=== PATIENT | male | born 1965 ===

== ENCOUNTER 2021-09-21 09:32 | Emergency (ER) | payer BC, SELFPAY ==
--- NOTE | ~2021-09-21 | XR_ITS ---
EXAMINATION: XR CHEST CLINICAL INFORMATION: Covid infection. Cough and shortness of breath. COMPARISON: Previous chest CTA June 2018 chest x-ray July 2013 TECHNIQUE: 2 views of the chest were obtained. FINDINGS: The cardiac and mediastinal contours are normal. The lungs are clear. There is no pleural effusion or pneumothorax. There are mild degenerative changes of the spine. XR/XR chest 2V IMPRESSION: Unremarkable examination.
[2021-09-21 09:38] VITALS: BP 147/76; PULSE 70; RESP 20; TEMP 36.7; O2SAT 95; BMI 35.2
--- NOTE | 2021-09-21 10:33 | ED_ITS ---
HPI - SOB/Dyspnea General Chief Complaint: Dyspnea Stated Complaint: FEVER CONGESTION POS COVID Time Seen by Provider: 09/21/21 10:33 Source: patient Mode of arrival: ambulatory Limitations: no limitations History of Present Illness HPI Narrative: patient started feeling sick last Wednesday, 8 days ago. He tested positive 4 days ago. Patient is vaccinated, patient has sleep apnea and Asthma. MD elicited complaint: shortness of breath and cough Pertinent past history: asthma Onset (ago): week(s) Context: recent illness Severity: mild Exacerbating factors: coughing Known history of: asthma Associated symptoms: denies other symptoms Related Data Previous Rx's Medication Instructions Recorded albuterol sulfate 90 mcg/actuation 2 puff INHALATION Q4H PRN 90 Days 08/05/21 aerosol inhaler #25.5 g atorvastatin 10 mg tablet 10 mg PO DAILY 90 Days #90 tab 08/05/21 lisinopril 5 mg tablet 5 mg PO DAILY 90 Days #90 tab 08/05/21 montelukast 10 mg tablet 10 mg PO DAILY 90 Days #90 tab 08/05/21 rivaroxaban 20 mg tablet (Xarelto) 20 mg PO QPM 90 Days #90 tab 08/05/21 ipratropium 0.5 mg-albuterol 3 mg 3 ml INHALATION Q8H PRN #180 ml 09/21/21 (2.5 mg base)/3 mL nebulization soln Allergies Allergy/AdvReac Type Severity Reaction Status Date / Time LOBSTER Allergy Mild ITCHING Uncoded 08/05/21 07:08 Review of Systems Constitutional: Constitutional: Reports no additional constitutional complaints Eyes: Eyes: Reports no additional eye complaints ENT: Denies dizziness Cardiovascular: Cardiovascular: Reports no additional cardiovascular complaints Respiratory: Respiratory: Reports as per HPI Gastrointestinal: Gastrointestinal: Reports no additional gastrointestinal complaints Musculoskeletal: Musculoskeletal: Reports no additional musculoskeletal complaints Integumentary/Breasts: Skin/Breast: Denies rash Neurologic: Reports system reviewed and no additional complaints, except as documented, Denies dizziness and Denies Sensory deficit (Neuro) Psychiatric: Psychiatric: Denies anxiety PMFSH Past Medical History Medical History Sleep apnea Social History Social History Advance Directives: No Advance Directives Information Provided: Yes Physical Exam Vital Signs: Vital Signs: Last Vital Signs Temp 98.0 F 09/21/21 09:38 Pulse 90 09/21/21 11:31 Resp 20 09/21/21 09:38 BP 147/76 H 09/21/21 09:38 Pulse Ox 94 09/21/21 11:31 Body Mass Index 35.2 Const: General: healthy appearing Nutritional Appearance: average body habitus Orientation/consciousness: oriented to person and patient oriented x3 Limitations: no limitations HENMT: Head: Yes normal to inspection Ears: external ears normal General nose exam: Normal external nose present Mouth: Normal oral and palatal mucosa present and oropharynx normal Throat: Yes posterior oropharynx normal Eyes: General: appearance normal, both eyes and all related structures Neck: Other: supple Neck: Yes normal visual inspection Chest: Chest palpation & inspection: normal inspection of the chest Resp: Other: slight wheeze bilaterally Cardio: Jugular venous distension: no JVD Rate: regular rate Rhythm: regular rhythm Heart sounds: S1 normal heart sound present and S2 normal heart sound present GI: Inspection: Yes normal to inspection Palpation (GI): Soft to palpation, nontender and No hepatosplenomegaly present Auscultation: normal bowel sounds : General: Yes no CVA tenderness Back/Spine/Pelvis: Back: no CVA tenderness Skin: General skin exam: no rashes or lesions noted Neuro: General: oriented to person and patient oriented x3 Cranial nerves: Yes CN's II-XII intact bilaterally Motor exam (neuro): 5/5 motor strength present throughout Sensory Exam: No Sensory deficit (Neuro) Extrem: General: Yes normal to inspection Psych: Appearance: grossly normal Course Reevaluation(s) Reevaluation #1: Patient not hypoxic here, xray with no infiltrate will encourage patient to continue with albuterol as needed Time: 11:18 MDM - SOB/Dyspnea Imaging Data Chest x-ray: Radiologist's impression: FINDINGS: The cardiac and mediastinal contours are normal. The lungs are clear. There is no pleural effusion or pneumothorax. There are mild degenerative changes of the spine. XR/XR chest 2V IMPRESSION: Unremarkable examination. Discharge Plan Discharge Clinical Impression: COVID-19 Patient Disposition: Home, Self-Care Instructions: COVID-19 (Coronavirus Disease 2019) (ED) Prescriptions: New ipratropium-albuterol 0.5 mg-3 mg(2.5 mg base)/3 mL solution for nebulization 3 ml inhalation Q8H PRN (Reason: shortness of breath or wheezing) Qty: 180 RF: 0 No Action albuterol sulfate 90 mcg/actuation HFA aerosol inhaler 2 puff inhalation Q4H PRN (Reason: shortness of breath or wheezing) 90 Days Qty: 25.5 RF: 3 atorvastatin 10 mg tablet 10 mg PO DAILY 90 Days Qty: 90 RF: 3 lisinopril 5 mg tablet 5 mg PO DAILY 90 Days Qty: 90 RF: 3 montelukast 10 mg tablet 10 mg PO DAILY 90 Days Qty: 90 RF: 3 Xarelto 20 mg tablet 20 mg PO QPM 90 Days Qty: 90 RF: 3 Referrals: Tor Amaya, CERTIFIED SHORTHAND REPORTER-BC [Primary Care Provider] - 1 week Interventions: ED Discharge Assessment Last Done: 09/21/21 11:48 Discharge Date/Time: 09/21/21 11:48
[2021-09-21] MEDS: Albuterol Sulfate 90 MCG 8 GM INHALER 4 PUFF INHALE (11:04)
[2021-09-21 11:06] VITALS: PULSE 70; O2SAT 95
[2021-09-21 11:31] VITALS: PULSE 90; O2SAT 94
--- NOTE | 2021-09-21 11:46 | PC.NURSE ---
pt asking for refills of duoneb and prednisone. dr patel aware, dr speaking with patient. pt agreable with plan.
== END 2021-09-21 11:48 | disposition home or self-care (01) ==
PROVIDERS: Emergency Provider Emergency Medicine; PCP Nurse Practitioner Family
DX: U07.1 COVID-19 (principal); R06.02 Shortness of breath; J45.909 Unspecified asthma, uncomplicated; Z79.899 Other long term (current) drug therapy
CPT/HCPCS: 71046; 94640; 99283; 99284

== ENCOUNTER 2022-08-06 12:10 | Outpatient (REF) | payer BC, SELFPAY ==
--- NOTE | ~2022-08-06 | XR_ITS ---
EXAMINATION: X-RAY BILATERAL KNEES X-RAY RIGHT KNEE CLINICAL INFORMATION: Knee pain COMPARISON: X-ray 01/14/2017 TECHNIQUE: X-ray bilateral knees one view. Right knee 2 views. FINDINGS: Right knee: Mild medial compartment joint space narrowing. No evidence of acute fracture or dislocation. Small marginal patellar osteophytes. No significant effusion. Left knee: Mild medial compartment joint space narrowing. No acute findings seen. XR/XR knee RT 2V IMPRESSION: Right knee: Mild medial compartment arthritis. No acute findings. Left knee: Mild medial compartment arthritis.
--- NOTE | ~2022-08-06 | XR_ITS ---
EXAMINATION: X-RAY BILATERAL KNEES X-RAY RIGHT KNEE CLINICAL INFORMATION: Knee pain COMPARISON: X-ray 01/14/2017 TECHNIQUE: X-ray bilateral knees one view. Right knee 2 views. FINDINGS: Right knee: Mild medial compartment joint space narrowing. No evidence of acute fracture or dislocation. Small marginal patellar osteophytes. No significant effusion. Left knee: Mild medial compartment joint space narrowing. No acute findings seen. XR/XR knee standing BI IMPRESSION: Right knee: Mild medial compartment arthritis. No acute findings. Left knee: Mild medial compartment arthritis.
== END 2022-08-06 12:11 | disposition home or self-care (01) ==
LOC: HO.HOSX 12:10
PROVIDERS: Visit Provider Orthopaedic Surgery
DX: M23.91 Unspecified internal derangement of right knee (principal)
CPT/HCPCS: 73560; 73565

== ENCOUNTER 2022-08-28 15:10 | Outpatient (REF) | payer BC, SELFPAY ==
--- NOTE | ~2022-08-28 | MR_ITS ---
EXAMINATION: MR KNEE WITHOUT CONTRAST, RIGHT CLINICAL INFORMATION: Right knee pain COMPARISON: Radiographs 08/06/2022 TECHNIQUE: MRI of the knee without contrast was performed using routine sequences on a high-field scanner. FINDINGS: MENISCI: Medial Meniscus: There is an oblique undersurface tear of the posterior horn with a tiny peripheral parameniscal cyst. Lateral Meniscus: Intact LIGAMENTS: Cruciate: Intact Collateral: Intact EXTENSOR MECHANISM: Intact ARTICULAR CARTILAGE/BONE: Patellofemoral Compartment: Normal Medial Compartment: Minimal cartilage thinning with areas of signal heterogeneity along the weightbearing femoral condyle Lateral Compartment: Normal JOINT FLUID AND BURSAE: No joint effusion. Trace Trujillo's cyst. MR/MR knee RT wo con IMPRESSION: Oblique undersurface tear of the posterior horn of the medial meniscus with a tiny peripheral parameniscal cyst. Mild medial compartment osteoarthritis. Trace Trujillo's cyst.
== END 2022-08-28 15:11 | disposition home or self-care (01) ==
LOC: HO.MRI 15:10
PROVIDERS: PCP Nurse Practitioner Family; Visit Provider Orthopaedic Surgery
DX: M23.91 Unspecified internal derangement of right knee (principal)
CPT/HCPCS: 73721

== ENCOUNTER 2023-02-22 06:12 | Outpatient (REF) | payer BC, SELFPAY ==
[2023-02-22 11:15] LABS: MANUAL DIFF FLAG NO
[2023-02-22 11:51] LABS: Appearance Urine Turbid; Color Urine Yellow; Glucose Urine UA 250 mg/dL (Negative); Leukocyte Esterase Urine Negative (Negative); Nitrite Urine Negative (Negative); PH 5.5 (5.0-9.0); Specific Gravity - Urine 1.025 (1.005-1.025); Urine Blood Negative (Negative); Urine Ketones Negative (Negative); Urine Protein Negative (Neg-Trace)
[2023-02-22 12:01] LABS: Basophils Percent Auto 0.3 % (0-2); Eosinophils Absolute Auto 0.1 X10*3/uL (0.0-0.4); Hematocrit 46.5 % (42.0-52.0); Hemoglobin 15.8 g/dl (14.0-18.0); Imm Gran Abs Auto 0.02 X10*3/uL (0.00-0.03); Imm Gran Pct Auto 0.3 % (0.0-0.4); Lymphocytes Absolute Auto 2.8 X10*3/uL (1.2-4.9); Mean Corpuscular Hemoglobin 33.1 pg (27.0-33.0); Mean Corpuscular Volume 97.5 fL (80.0-98.0); Mean Platelet Volume 10.3 fL (9.4-12.4); Monocytes Absolute Auto 0.7 X10*3/uL (0.1-1.2); Monocytes Percent Auto 9.5 % (2-11); Neutrophils Absolute Auto 3.3 x10*3/uL (2.0-8.3); Neutrophils Percent Auto 47.9 % (45-73); Platelet Count 197 X10*3/uL (160-400); Red Blood Count 4.77 X10*6/uL (4.60-5.80); Red Cell Distribution Width 11.9 % (11.0-16.0); White Blood Count 6.9 X10*3/uL (4.8-10.8)
[2023-02-22 12:32] LABS: Alanine Aminotransferase 47 U/L (0-40); Albumin Level 4.2 g/dL (3.5-5.0); Alkaline Phosphatase 57 U/L (39-117); Anion Gap 13 (12-20); Aspartate Amino Transferase 32 U/L (5-37); Bilirubin Total 0.4 mg/dL (0.0-1.0); Blood Urea Nitrogen 15 mg/dL (9-16); Calcium 9.5 mg/dL (8.4-10.2); Carbon Dioxide 28 mmol/L (22-29); Chloride 102 mmol/L (96-108); Cholesterol 232 mg/dL; Estimated Glomerular Filt Rate 54; Glucose Fasting 246 mg/dL (60-99); HDL Cholesterol 41 mg/dL; LDL Cholesterol Calculated 148 mg/dl; Potassium 4.7 mmol/L (3.3-5.1); Sodium 138 mmol/L (135-145); TSH reflex Free T4 1.47 uIU/mL (0.32-4.0); Triglycerides 219 mg/dL
== END 2023-02-22 06:13 | disposition home or self-care (01) ==
LOC: HO.HMGCLDS 06:12
PROVIDERS: PCP Nurse Practitioner Family; Visit Provider Nurse Practitioner Family
DX: Z00.00 Encounter for general adult medical examination without abnormal findings (principal); Z12.5 Encounter for screening for malignant neoplasm of prostate; E11.9 Type 2 diabetes mellitus without complications
CPT/HCPCS: 36415; 80053; 80061; 81003; 84153; 84443; 85025

== ENCOUNTER 2023-08-16 07:41 | Outpatient (AMB) | payer BC, SELFPAY ==
--- NOTE | 2023-08-16 07:24 | A.OFFPC_ITS ---
Intake Visit Reasons: new DM Allergies LOBSTER Allergy (Mild, Uncoded 04/21/23 14:10) ITCHING Medication List - Last Reconciled 08/16/23 by SWATI Foster albuterol sulfate 90 mcg/actuation 2 puffs inhalation Q4H PRN 90 days atorvastatin 10 mg PO BEDTIME 90 days CPAP (CPAP Machine/Device) Settings to be gauged at 8 to 13 cmH2O Dexcom G6 [employer] Teacher (blood-glucose meter,continuous) tid testing NS Dexcom G6 Sensor (blood-glucose sensor) tid testing NS Dexcom G6 Transmitter (blood-glucose transmitter) tid testing NS flash glucose scanning reader (FreeStyle Ermelinda 2 [place]) To monitor blood glucose throughout the day flash glucose sensor (FreeStyle Ermelinda 2 Sensor kit) To monitor blood glucose throughout the day ipratropium-albuterol 0.5 mg-3 mg(2.5 mg base)/3 mL 3 mL inhalation Q8H PRN lisinopril 10 mg PO DAILY 90 days montelukast 10 mg PO DAILY 90 days OneTouch Ultra Test (blood sugar diagnostic) TID NS OneTouch Ultra2 Meter (blood-glucose meter) TID NS OneTouch UltraSoft Lancets (lancets) TID NS rivaroxaban (Xarelto) 20 mg PO QPM 90 days semaglutide 1 mg (0.75 mL) subcut QWEEK Tobacco use date assessed: 04/21/23 HPI new DM HPI Details Pt is a diabetic, on an GABRIEL and a statin. Last A1C was 7.2, due for repeat. Due for microalbumin, will order. Denies polyuria, polydipsia, and neuropathy. Pt denies any signs and symptoms of hypoglycemia and does know how to correct it. Pt reports that his blood sugar has been well-controlled. He has been working on his diet and losing weight. Eye exam is up to date. Pt c/o pain in his middle upper back (below shoulder blades). He denies any radicular symptoms. he reports having this back pain before, which has been becoming worse, describing muscle tightness. Will send tizanidine 4mg to try, order a XR, encouraged warm moist heat to region, and stretching. 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 Joshua Elaine, Devorah Sharp, Mendel Kumar and colleagues, with an educational lázaro from [employer]. Review of Systems Const Reports as per HPI Physical exam (Primary Care) Tobacco/Smoking Status: Tobacco use Status Tobacco use date assessed 04/21/23 04/21/23 14:13 Patient Tobacco Use Status Former Tobacco user 04/21/23 14:13 e-Cigarette/Vaping Use Never Used 04/21/23 14:13 Thrive Assessment: Date of Thrive Assessment Date Thrive assessed 02/17/23 04/21/23 14:13 Const General: cooperative Orientation/consciousness: patient oriented x3 Neuro General: patient oriented x3 Psych Appearance: grossly normal Mental Status: mental status grossly normal Speech and movement: Clear speech present Affect: normal affect Attitude: cooperative Thought process: Normal thought process present Thought content: Normal thought content present Insight: Good insight present (Psych) Judgement: Good judgement present (Psych) Telehealth Telehealth Location of provider rendering services: practice address Location of patient: address on file Patient Identification confirmed using: Name, : Yes Telehealth method: voice only Patient verbally consented to treatment: Yes Patient verbally consented to billing insurance company: Yes Patient informed of any privacy concerns related to visit: Yes Minutes spent on Phone/Video with Pt.: 10 Assessment and Plan Assessment & Plan (1) Thoracic back pain: Code(s): M54.6 - Pain in thoracic spine Plan: XR ordered, tizanidine sent, heat and stretching (2) Diabetes: Code(s): E11.9 - Type 2 diabetes mellitus without complications Plan: Labs ordered Plan The patient agreed to the use of a durable medical equipment technician for this encounter. Scribed fo shante Amaya, INTERVENTIONAL NURSE-BC by Delaney Rubio, durable medical equipment technician, on 08/16/2023 at 07:25 EST. Orders: Orders Complete Blood Count Auto Diff Today E11.9 - Type 2 diabetes mellitus without complications TSH reflex Free T4 Today E11.9 - Type 2 diabetes mellitus without complications Lipid Panel Today E11.9 - Type 2 diabetes mellitus without complications Microalbumin, Random (w Creat) Today E11.9 - Type 2 diabetes mellitus without complications XR thoracic spine 2V Today M54.6 - Pain in thoracic spine Comprehensive [place]. Panel Fast Today E11.9 - Type 2 diabetes mellitus without complications UA CC w/rflx Micro + Cult Today E11.9 - Type 2 diabetes mellitus without complications Hemoglobin A1c Today E11.9 - Type 2 diabetes mellitus without complications Medications: New tizanidine 4 mg PO BID 14 days PRN 28 tabs 0RF muscle spasticity Coding Level of Care Code Tele Est Pt Level 3 (93927) Diagnoses Thoracic back pain M54.6 Diabetes E11.9
== END 2023-08-16 08:32 | disposition home or self-care (01) ==
PROVIDERS: PCP Nurse Practitioner Family; Visit Provider Nurse Practitioner Family
DX: M54.6 Pain in thoracic spine (principal); E11.9 Type 2 diabetes mellitus without complications
CPT/HCPCS: 99441

== ENCOUNTER 2023-11-29 07:47 | Outpatient (REF) | payer BC, SELFPAY | END 2023-11-29 07:48 | disposition home or self-care (01) | LOC: HO.HMGCLDS 07:47 | PROVIDERS: PCP Nurse Practitioner Family; Visit Provider Nurse Practitioner Family | DX: E11.9 Type 2 diabetes mellitus without complications (principal) | CPT/HCPCS: 36415; 80053; 80061; 81003; 82043; 82570; 83036; 84443; 85025 ==

== ENCOUNTER 2023-11-30 09:42 | Outpatient (AMB) | payer BC, SELFPAY ==
--- NOTE | 2023-11-30 09:46 | MHC.PC.OV ---
Vital Signs 11/30/23 09:50 11/30/23 10:14 Height 6 ft Weight 240 lb BMI 32.5 BP 136/92 H 140/90 H Blood Pressure Location Rt brachial Rt brachial Position Sitting Sitting Pulse 74 Pulse Source Pulse Oximeter Pulse Oximetry (%) 98 Oxygen Delivery Method Room Air Intake Visit Reasons: 3 months follow up Intake Note: Patient here for diabetes f/u. Pt states sugars have been good. Allergies LOBSTER Allergy (Mild, Uncoded 11/30/23 09:51) ITCHING Tobacco use date assessed: 11/30/23 Dental Screening Dental Screen Date: 11/30/23 Did you have a dental visit in the last 12 months?: Yes Did you have a dental problem in the last 6 months where you did not have access to dental care?: No Was dental information given to patient?: Patient has dentist HPI 3 months follow up HPI Details Pt is a diabetic, on an GABRIEL and a statin. Last A1C was 5.9, microalbumin is up to date. Denies polyuria, polydipsia, and neuropathy. Pt denies any signs and symptoms of hypoglycemia and does know how to correct it. HTN: Blood pressure is managed with lisinopril 10mg. BP is elevated, will increase lisinopril to 20mg. 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 Denies chest pain, shortness of breath, headache, dizziness, and blurred vision. Will repeat CMP in 2 weeks. 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 1. Little interest or pleasure in doing things: not at all 2. Feeling down, depressed, or hopeless: several days 3. Trouble falling or staying asleep, or sleeping too much: several days 4. Feeling tired or having little energy: several days 5. Poor appetite or overeating: several days 6. Feeling bad about yourself - or that you are a failure or have let yourself or your family down: several days 7. Trouble concentrating on things, such as reading the newspaper or watching television: several days 8. Moving or speaking so slowly that other people could have noticed. Or the opposite - being so fidgety or restless that you have been moving around a lot more than usual: not at all 9. Thoughts that you would be better off or of hurting yourself in some way: not at all Total score: 6 Depression Screening Interpretation: Negative Depression Screening Done: Yes 27314 - PHQ-9 Billing: Yes Source: Developed by Drs. Joshua Elaine, Devorah Sharp, Mendel Kumar and colleagues, with an educational lázaro from [email or web address]. Thrive Questionnaire Date Thrive assessed: 11/30/23 I am a: Patient What is your living situation today?: I have a steady place to live Within the past 12 months, did the food you bought not last and you didn't have the money to get more?: Never true Within the past 12 months, did you worry whether your food would run out before you got money to buy more?: Never true Do you have trouble paying for medicines?: No Do you have trouble getting transportation to medical appointments?: No Do you have trouble paying your heating and electricity bill?: No Do you have trouble taking care of your child, family member or friend?: No Do you have trouble with day-to-day activities such as bathing, preparing meals, shopping, managing finances, etc.?: No Are you currently unemployed and looking for a job?: No Are you interested in more education?: No AUDIT C Alcohol Use Questionnaire (AUDIT-C) 1. How often do you have a drink containing alcohol?: 2-4 times a month 2. How many drinks containing alcohol do you have on a typical day when you are drinking?: 1 or 2 3. How often do you have six or more drinks on one occasion?: Never Total Score: 2 Score Reviewed/Action Taken: No KASIA-7 AMB Questionnaire KASIA-7 Date KASIA - 7 assessed: 02/17/23 Feeling nervous, anxious, or on edge: 1 = Several days Not being able to stop or control worryin = Several days Worrying too much about different things: 1 = Several days Trouble relaxin = Several days Being so restless that it is hard to sit still: 1 = Several days Becoming easily annoyed or irritable: 1 = Several days Feeling afraid as if something awful might happen: 1 = Several days Total KASIA-7 score (0-4 normal; 5-9 mild; 10-14 moderate; 15-21 severe): 7 Source: Developed by Drs. Joshua Elaine, Devorah Sharp, Mendel Kumar and colleagues, with an educational lázaro from [email or web address]. KASIA-7 Assessment Billing KASIA-7 Assessment Tool: KASIA-7 Assessment 41069 Review of Systems Const Reports as per HPI Physical exam (Primary Care) Vital Signs: Last Vital Signs Pulse 74 11/30/23 09:50 BP 140/90 H 11/30/23 10:14 Pulse Ox 98 11/30/23 09:50 Oxygen Delivery Method Room Air 11/30/23 09:50 BMI result Body Mass Index 32.5 Tobacco/Smoking Status: Tobacco use Status Tobacco use date assessed 11/30/23 11/30/23 09:55 Patient Tobacco Use Status Never used Tobacco 11/30/23 09:55 e-Cigarette/Vaping Use Never Used 11/30/23 09:47 PHQ-9: PHQ-9 Score PHQ-9: Total score 6 11/30/23 10:35 Depression Screening Interpretation: Negative Thrive Assessment: Date of Thrive Assessment Date Thrive assessed 11/30/23 11/30/23 10:35 Const General: cooperative Nutritional Appearance: obese Orientation/consciousness: patient oriented x3 Resp Effort & Inspection: normal respiratory effort Auscultation: clear to auscultation bilaterally Cardio Rate: regular rate Rhythm: regular rhythm Heart sounds: S1 normal heart sound present and S2 normal heart sound present Neuro General: patient oriented x3 Extrem Other: bilat feet: + sensation with use of monofilament, feet intact Right lower extremity: no edema Left lower extremity: no edema Psych Appearance: grossly normal Mental Status: mental status grossly normal Speech and movement: Normal speech and movement present Affect: normal affect Attitude: cooperative Thought process: Normal thought process present Thought content: Normal thought content present Insight: Good insight present (Psych) Judgement: Good judgement present (Psych) Assessment and Plan Assessment & Plan (1) Diabetes: Code(s): E11.9 - Type 2 diabetes mellitus without complications Plan: Labs ordered (2) Hypertension: Code(s): I10 - Essential (primary) hypertension Plan: Increasing lisinopril to 20mg Plan The patient agreed to the use of a medical care administrator for this encounter. Scribed for JUNI Perez-GREGOR by Delaney Rubio medical care administrator, on 11/30/2023 at 10:10 EST. Orders: Orders Complete Blood Count Auto Diff Today E11.9 - Type 2 diabetes mellitus without complications UA CC w/rflx Micro + Cult Today E11.9 - Type 2 diabetes mellitus without complications Comprehensive [place]. Panel Fast Today E11.9 - Type 2 diabetes mellitus without complications TSH reflex Free T4 Today E11.9 - Type 2 diabetes mellitus without complications Lipid Panel Today E11.9 - Type 2 diabetes mellitus without complications Comprehensive [place]. Panel Today I10 - Essential (primary) hypertension Medications: Changed From lisinopril 10 mg PO DAILY 90 days 90 tabs 1RF I10 - Essential (primary) hypertension To lisinopril 20 mg PO DAILY 90 tabs 1RF 90 days I10 - Essential (primary) hypertension Coding Level of Care Code Est Pt Level 3 (25287) Diagnoses Diabetes E11.9 Hypertension I10 Additional Codes KASIA-7 Assessment Billing - KASIA-7 Assessment Tool: KASIA-7 Assessment 10645 ([id number])
[2023-11-30 09:50] VITALS: BP 136/92; PULSE 74; O2SAT 98; BMI 32.5
[2023-11-30 10:14] VITALS: BP 140/90
== END 2023-11-30 11:22 | disposition home or self-care (01) ==
PROVIDERS: PCP Nurse Practitioner Family; Visit Provider Nurse Practitioner Family
DX: E11.9 Type 2 diabetes mellitus without complications (principal); I10 Essential (primary) hypertension
CPT/HCPCS: 99213

== ENCOUNTER 2024-08-21 12:57 | Outpatient (AMB) | payer BC, SELFPAY ==
--- NOTE | 2024-08-21 13:00 | A.OFFPC_ITS ---
Vital Signs 08/21/24 13:06 Height 6 ft Weight 238 lb 8 oz BMI 32.3 BP 138/90 H Blood Pressure Location Rt brachial Pulse 101 H Pulse Source Pulse Oximeter Pulse Oximetry (%) 97 Oxygen Delivery Method Room Air Intake Visit Reasons: PE Intake Note: Pt is here today for his annual physical Allergies LOBSTER Allergy (Mild, Uncoded 11/30/23 09:51) ITCHING Tobacco use date assessed: 08/21/24 Dental Screening Dental Screen Date: 08/21/24 Did you have a dental visit in the last 12 months?: Yes Did you have a dental problem in the last 6 months where you did not have access to dental care?: No Was dental information given to patient?: Patient has dentist HPI PE HPI Details Pt is here for a PE. Will order labs. Due for colon screen, will refer to GI. Due for PSA, will order. Denies dribbling with urination, weak stream, and frequent nocturia. Pt is a diabetic, on an GABRIEL and a statin. A1C in office today is 6.3. Microalbumin is up to date. Denies polyuria, polydipsia, and neuropathy. Pt denies any signs and symptoms of hypoglycemia and does know how to correct it. HTN: Pt's blood pressure is elevated today. Will increase lisinopril from 20mg to 40mg. Denies chest pain, shortness of breath, headache, dizziness, and blurred vision. I will sign off on paperwork stating that pt has sleep apnea and asthma for the DE. 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 1. Little interest or pleasure in doing things: not at all 2. Feeling down, depressed, or hopeless: several days 3. Trouble falling or staying asleep, or sleeping too much: several days 4. Feeling tired or having little energy: several days 5. Poor appetite or overeating: not at all 6. Feeling bad about yourself - or that you are a failure or have let yourself or your family down: several days 7. Trouble concentrating on things, such as reading the newspaper or watching television: not at all 8. Moving or speaking so slowly that other people could have noticed. Or the opposite - being so fidgety or restless that you have been moving around a lot more than usual: not at all 9. Thoughts that you would be better off or of hurting yourself in some way: not at all Total score: 4 Depression Screening Interpretation: Negative Depression Screening Done: Yes 13369 - PHQ-9 Billing: Yes Source: Developed by Drs. Joshua Elaine, Devorah Sharp, Mendel Kumar and colleagues, with an educational lázaro from [employer]. Thrive Questionnaire Date Thrive assessed: 08/21/24 I am a: Patient What is your living situation today?: I have a steady place to live Within the past 12 months, did the food you bought not last and you didn't have the money to get more?: Never true Within the past 12 months, did you worry whether your food would run out before you got money to buy more?: Never true Do you have trouble paying for medicines?: No Do you have trouble getting transportation to medical appointments?: No Do you have trouble paying your heating and electricity bill?: No Do you have trouble taking care of your child, family member or friend?: No Do you have trouble with day-to-day activities such as bathing, preparing meals, shopping, managing finances, etc.?: No Are you currently unemployed and looking for a job?: No Are you interested in more education?: No Please select the resources that you would like help with: None Currently or been in a relationship where the following occur: No concerns reported THRIVE Score: 0 AUDIT C Alcohol Use Questionnaire (AUDIT-C) 1. How often do you have a drink containing alcohol?: 2-4 times a month 2. How many drinks containing alcohol do you have on a typical day when you are drinking?: 1 or 2 3. How often do you have six or more drinks on one occasion?: Never Total Score: 2 Score Reviewed/Action Taken: Yes KASIA-7 AMB Questionnaire KASIA-7 Date KASIA - 7 assessed: 08/21/24 Feeling nervous, anxious, or on edge: 1 = Several days Not being able to stop or control worryin = Several days Worrying too much about different things: 1 = Several days Trouble relaxin = Several days Being so restless that it is hard to sit still: 0 = Not at all Becoming easily annoyed or irritable: 1 = Several days Feeling afraid as if something awful might happen: 0 = Not at all Total KASIA-7 score (0-4 normal; 5-9 mild; 10-14 moderate; 15-21 severe): 5 Source: Developed by Drs. Joshua Elaine, Devorah Sharp, Mendel Kumar and colleagues, with an educational lázaro from [employer]. KASIA-7 Assessment Billing KASIA-7 Assessment Tool: KASIA-7 Assessment 29754 Review of Systems Const Denies chills and Denies fever(s) Eyes Denies blurry vision ENT Denies vertigo, Denies dizziness and Denies sore throat Card Denies chest pain at rest, Denies chest pain with activity, Denies diaphoresis, Denies dyspnea and Denies dyspnea on exertion Resp Denies cough, Denies dyspnea, Denies dyspnea on exertion and Denies wheezing GI Denies abdominal pain, Denies melena, Denies hematochezia, Denies constipation, Denies diarrhea and Denies loose stools Denies hematuria Musc Denies numbness and Denies tingling Skin/Breast Denies lesions Neuro Denies vertigo, Denies dizziness, Denies numbness and Denies tingling Psych Denies anxiety, Denies depression, Denies homicidal ideation, Denies suicidal ideation and Denies other (substance abuse) Aller/Immun Denies wheezing Physical exam (Primary Care) Vital Signs: Last Vital Signs Pulse 101 H 08/21/24 13:06 BP 138/90 H 08/21/24 13:06 Pulse Ox 97 08/21/24 13:06 Oxygen Delivery Method Room Air 08/21/24 13:06 BMI result Body Mass Index 32.3 Tobacco/Smoking Status: Tobacco use Status Tobacco use date assessed 08/21/24 08/21/24 13:12 Patient Tobacco Use Status Never used Tobacco 08/21/24 13:01 e-Cigarette/Vaping Use Never Used 08/21/24 13:01 PHQ-9: PHQ-9 Score PHQ-9: Total score 4 08/21/24 13:12 Depression Screening Interpretation: Negative Thrive Assessment: Date of Thrive Assessment Date Thrive assessed 08/21/24 08/21/24 13:12 Currently or been in a relationship where the following occur: No concerns reported Const General: cooperative Nutritional Appearance: well nourished Orientation/consciousness: patient oriented x3 HENMT Head: Yes normal to inspection, Yes normocephalic and Yes atraumatic Ears: TM's normal bilaterally Eyes General: appearance normal, both eyes and all related structures Alignment and Position: alignment normal and position normal Neck Neck: Yes normal visual inspection, Yes no lymphadenopathy and Yes supple Resp Effort & Inspection: normal respiratory effort Auscultation: clear to auscultation bilaterally Cardio Rate: regular rate Rhythm: regular rhythm Heart sounds: S1 normal heart sound present, S2 normal heart sound present and no murmurs GI Palpation (GI): Soft to palpation and nontender Auscultation: normal bowel sounds Other: NICO: prostate slightly enlarged, smooth, no nodules Male General Exam: Yes normal external exam Penis: normal penis Scrotum: scrotum normal, testes descended bilaterally and no inguinal hernias Testes: no testicular mass Skin Rashes: no rashes Neuro General: patient oriented x3, moves all extremities, no focal motor deficits and deep tendon reflexes 2+ bilaterally Romberg Test: Negative Psych Appearance: grossly normal Mental Status: mental status grossly normal Speech and movement: Normal speech and movement present Affect: normal affect Attitude: cooperative Thought process: Normal thought process present Thought content: Normal thought content present Insight: Good insight present (Psych) Judgement: Good judgement present (Psych) Assessment and Plan Assessment & Plan (1) Physical exam: Code(s): Z00.00 - Encounter for general adult medical examination without abnormal findings Plan: Labs ordered (2) Diabetes: Code(s): E11.9 - Type 2 diabetes mellitus without complications Plan: A1C done in office (3) Screening PSA (prostate specific antigen): Code(s): Z12.5 - Encounter for screening for malignant neoplasm of prostate Plan The patient agreed to the use of a certified medical coding specialist for this encounter. Scribed f or Tor Amaya, SUPPRESSION CREW LEADER-BC by Delaney Rubio, certified medical coding specialist, on 08/21/2024 at 13:30 EST. Orders: Orders Comprehensive Mitchell. Panel Fast Today Z00.00 - Encounter for general adult medical examination without abnormal findings TSH reflex Free T4 Today Z00.00 - Encounter for general adult medical examination without abnormal findings UA CC w/rflx Micro + Cult Today Z00.00 - Encounter for general adult medical examination without abnormal findings Lipid Panel Today Z00.00 - Encounter for general adult medical examination without abnormal findings Prostate Specific Antigen Scr Today Z12.5 - Encounter for screening for malignant neoplasm of prostate Complete Blood Count Auto Diff Today Z00.00 - Encounter for general adult medical examination without abnormal findings Referrals Gastroenterology Referral Z00.00 - Encounter for general adult medical examination without abnormal findings, Z12.11 - Encounter for screening for malignant neoplasm of colon Medications: Changed From lisinopril 20 mg PO DAILY 90 days 90 tabs 1RF I10 - Essential (primary) hypertension To lisinopril 40 mg PO DAILY 90 days 90 tabs 1RF I10 - Essential (primary) hypertension Coding Level of Care Code Est Pt Prev Care 40-64y(33423) Diagnoses Physical exam Z00.00 Diabetes E11.9 Screening PSA (prostate specific antigen) Z12.5 Additional Codes KASIA-7 Assessment Billing - KASIA-7 Assessment Tool: KASIA-7 Assessment 93472 ([id number])
[2024-08-21 13:06] VITALS: BP 138/90; PULSE 101; O2SAT 97; BMI 32.3
== END 2024-08-21 16:25 | disposition home or self-care (01) ==
PROVIDERS: PCP Nurse Practitioner Family; Visit Provider Nurse Practitioner Family
DX: Z13.9 Encounter for screening, unspecified (principal)

== ENCOUNTER → 2024-08-21 12:57 | Outpatient (BNVA) | payer BC, SELFPAY | PROVIDERS: PCP Nurse Practitioner Family; Visit Provider Nurse Practitioner Family | DX: Z00.00 Encounter for general adult medical examination without abnormal findings (principal); E11.9 Type 2 diabetes mellitus without complications | CPT/HCPCS: 83036; 96127 ==

== ENCOUNTER 2024-12-06 08:19 | Outpatient (REF) | payer BC, SELFPAY ==
--- OUTSIDE RECORDS SUMMARY | 2024-12-06 08:27 | XMS_ITS ---
Author Name [facility] Organization [facility] Address [address] [place] [address] Care Team Providers Care Biological Science Technician Name Role Phone CLYDE TORO Primary Care Provider Unavailabl e Selected Encounter This section includes the information on record at [place] for the Encounter. Date/Time Encounter Type Encounter Description Reason Provider Source Mar 03, 2024 02:37 PM Outpatient Encounter TELEPHONE PRIMARY CARE ICD-10-CM Z86.718 Personal history of other venous thrombosis and embolism TRAE CUETO [facility] Encounter Template Text not used by [place] Assessments - Encounter Diagnoses This section includes the primary and secondary diagnoses documented for the Encounter. Date/Time Primary/Secondary Diagnosis Diagnosis Name Provider Source Mar 03, 2024 02:37 PM PRIMARY Personal history of other venous thrombosis and [facility]ism [facility] [place] [facility] Mar 03, 2024 02:37 PM SECONDARY Anxiety disorder, unspecified [facility] [place] [facility] Mar 03, 2024 02:37 PM SECONDARY Essential (primary) hypertension [facility] [place] [facility] Mar 03, 2024 02:37 PM SECONDARY Post-traumatic stress disorder, unspecified [facility] [place] [facility] Mar 03, 2024 02:37 PM SECONDARY Unspecified asthma, uncomplicated [facility] Plan of Treatment: Future Appointments (+ 6 months) and Future Tests (+/- 45 days) The Plan of Treatment section includes future care activities for the patient from all [place] treatmentfacilities. This section includes future appointments and future orders which are active, pending or scheduled. Future Appointments This section includes appointments that were scheduled to occur 6 months from the date of the Encounter, up to a maximum of 20 appointments. The data comes from all [place] treatment facilities. Appointment Date/Time Appointment Type Appointme nt Facility Name April 10, 2024 10:00 AM AMBULATORY - MEDICINE [place] [facility] [place] [facility] Apr 24, 2024 01:00 PM AMBULATORY - PSYCHIATRY [place] [facility] [place] [facility] Apr 27, 2024 02:00 PM AMBULATORY - PSYCHIATRY [place] [facility] [place] [facility] May 04, 2024 02:00 PM AMBULATORY - [facility] Social History: Smoking Status (Most current) and Tobacco Use (All prior to encounter date) This section includes the most current, and the historical, smoking and tobacco- related health factors from the [place] facility where the Encounter took place. Current Smoking Status This section includes the most current smoking, or tobacco-related health factor, from the [place] facility where the Encounter took place. Date/Time Current Smoking Status Comment Facil ity Mar 03, 2024 02:37 PM VA-TOBACCO USE 1 T O < 5 YEARS [facility] Tobacco Use History This section includes a history of the smoking, or tobacco-related health factors, that were collected on or before the date of the Encounter. The data comes from the [place] facility where the Encounter took place. Date/Time Smoking Status/Tobacco Use Comment F acility Mar 03, 2024 02:37 PM VA-TOBACCO USE 1 TO < 5 YEARS [facility] [place] [facility] Mar 03, 2024 02:37 PM VA-TOBACCO USE ADVICE [facility] [place] [facility] Mar 03, 2024 02:37 PM VA-TOBACCO USE ENTRY LEVEL RECRUITER NO [facility] [place] [facility] Mar 03, 2024 02:37 PM VA-TOBACCO USE MED NO [facility] [place] [facility] Mar 03, 2024 02:37 PM VA-TOBACCO USER SOME DAYS [facility] [place] [facility] Encounter Notes: All associated encounter notes This section contains the clinical notes associated to the Encounter. Date/Time Encounter Note(s) Provider Source Mar 03, 2024 02:37 PM TELEPHONE ENCOUNTER NOTE: LOCAL TITLE: TELEPHONE NOTE/PA STANDARD TITLE: TELEPHONE ENCOUNTER NOTE DATE OF NOTE: MAR 03, 2024@14:37 ENTRY DATE: MAR 03, 2024@14:37:29 AUTHOR: TRAE CUETO EXP COSIGNER: URGENCY: STATUS: COMPLETED INITIAL CONTACT FROM MEDICAL PROVIDER Service Connection/Rated Disabilities: Service Connected Disabilities with % Eligibility: NSC VERIFIED HISTORY: BRANCH OF SERVICE: [employer] PERIOD OF SERVICE: [employer] (Jun 1990- ) SPECIFIC YEARS OF SERVICE [id number] PAST MEDICAL HX: Active problems - Computerized Problem List is the source for the followin. History of deep vein thrombosis 2. Asthma 3. Benign essential hypertension 4. Posttraumatic stress disorder 5. Anxiety PAST SURGICAL Hx: Bilateral knee (Torn Meniscus repair) KDA: Patient has answered NKA Active Inpatient Medications (including Supplies): Active Outpatient Medications (including Supplies): Active Non-VA Medications Status 1) Non-VA BUSPIRONE HCL 5MG TAB 2.5MG BY MOUTH TWICE ACTIVE DAILY 2) Non-VA LISINOPRIL 10MG TAB 10MG BY MOUTH ONCE DAILY ACTIVE 3) Non-VA MONTELUKAST NA 10MG TAB 10MG BY MOUTH ONCE ACTIVE DAILY 4) Non-VA PRAZOSIN HCL CAP,ORAL BY MOUTH ACTIVE 5) Non-VA RIVAROXABAN 10MG TAB 10MG BY MOUTH ACTIVE Meds: Active Outpatient Medications (including Supplies): Non-VA BUSPIRONE HCL 5MG TAB 2.5MG BY MOUTH TWICE DAILY ACTIVE Non-VA LISINOPRIL 10MG TAB 10MG BY MOUTH ONCE DAILY ACTIVE Non-VA MONTELUKAST NA 10MG TAB 10MG BY MOUTH ONCE DAILY ACTIVE Non-VA PRAZOSIN HCL CAP,ORAL BY MOUTH ACTIVE Non-VA RIVAROXABAN 10MG TAB 10MG BY MOUTH ACTIVE SOCIAL Hx: Homelessness/Food Insecurity Screen: In the past 2 months, have you been living in stable housing that you own, rent, or stay in as part of a household? Yes - Living in stable housing. Are you worried or concerned that in the next 2 months you may NOT have stable housing that you own, rent, or stay in as part of a household? No - Not worried about housing near future The reports the following: Within the past 12 months, you worried whether your food would run out before you got money to buy more. Never true Within the past 12 months, the food you bought just didn't last and you didn't have money to get more. Never true Preferred Language: What is your, or your caregiver's preferred language for healthcare? Preferred Language: Yoruba Tobacco Use Screening: The patient uses tobacco but not every day. ABOUT ONCE A MONTH A PIPE The patient does not use tobacco within 30 minutes of waking up. The patient has been smoking or using tobacco for more than 1 year and less than 5 years. Patient was advised to quit smoking and/or using tobacco. Discussion with patient included: - Quitting smoking or tobacco use is one of the most important things you can do to protect and improve your health and [place] has the resources to support you. - Set a quit date when you are ready to quit. - Get support from your family and friends. - Review any past quit attempts- What helped? What didn't? - On the day you plan to quit, get rid of all cigarettes and tobacco products from your home, car or work. - Using a combination of behavioral counseling or other support strategies and FDA-approved cessation medications is the most effective way to ensure success in quitting. Patient was offered Behavioral Counseling and other support strategies to assist with quitting. Discussion with patient included: - Behavioral counseling or other support strategies greatly increases your chances of successfully quitting smoking or tobacco use by helping you develop a quit plan and providing support and other strategies to make behavioral changes to help you quit. - [place] has a number of behavioral counseling options to help you with quitting, including: * Provide information about the facility smoking or tobacco use treatment options or clinics * [place]'s national quitline, 0-185-XEUD-VET, with counseling available Wednesday-Wednesday The patient was not interested in receiving additional information about how to use the treatment options discussed. Patient was offered FDA-approved cessation medications. Discussion with patient included: - Medications for Nicotine replacement therapy such as the patch, gum or lozenge, and other medications such as varenicline or bupropion, can play an important role in the initial weeks and months after you quit smoking or tobacco use. - Medications help with cravings and withdrawal symptoms and they greatly increase your chances of successfully quitting. The patient was not interested in a prescription for tobacco cessation medications. Medication Reconciliation: Outpatient: Medication Reconciliation was attempted at this encounter, but unable to complete: Unable to complete medication reconciliation - additional attempts needed. Alcohol Use Screen (AUDIT-C): Alcohol Screen: SCREEN FOR ALCOHOL (AUDIT-C) An alcohol screening test (AUDIT-C) was negative (score=1). 1. How often did you have a drink containing alcohol in the past year? Consider a drink to be a 12 ounce can or bottle of regular beer, 8 ounces of malt liquor, a 5 ounce glass of table wine, or a 1.5 ounce shot of liquor (like scotch, gin, or vodka). Monthly or less 2. How many drinks containing alcohol did you have on a typical day when you were drinking in the past year? One or two drinks 3. How often did you have six or more drinks on one occasion in the past year? Never COVID-19 Immunization: Vaccine given previously - no written/electronic documentation available The patient was instructed to bring a copy of their COVID-19 vaccine information to their next appointment so that this can be accurately recorded in their [facility] medical record. 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
--- OUTSIDE RECORDS SUMMARY | 2024-12-06 08:28 | XMS_ITS | Encounter Summary ---
Author Name [facility] Organization [facility] Address [address] [place] [address] Care Team Providers Care Animal Caretaker Supervisor Name Role Phone CLYDE TORO Primary Care Provider Unavailabl e Selected Encounter This section includes the information on record at [place] for the Encounter. Date/Time Encounter Type Encounter Description Reason Provider Source May 04, 2024 02:00 PM PSYTX W PT 45 [facility]UTES [facility] - IND ICD-10-CM F43.89 Other reactions to severe stress ANAT MARIE Encounter Template Text not used by [place] Assessments - Encounter Diagnoses This section includes the primary and secondary diagnoses documented for the Encounter. Date/Time Primary/Secondary Diagnosis Diagnosis Name Provider Source May 04, 2024 03:45 PM PRIMARY Other reactions to severe stress EMEKA MENDOZA [facility] Plan of Treatment: Future Appointments (+ 6 months) and Future Tests (+/- 45 days) The Plan of Treatment section includes future care activities for the patient from all [place] treatmentfacilities. This section includes future appointments and future orders which are active, pending or scheduled. Future Appointments This section includes appointments that were scheduled to occur 6 months from the date of the Encounter, up to a maximum of 20 appointments. The data comes from all [place] treatment facilities. Appointment Date/Time Appointment Type Appointme nt Facility Name Oct 23, 2024 03:00 PM AMBULATORY - PSYCHIATRY [facility] Oct 30, 2024 03:00 PM AMBULATORY - PSYCHIATRY [facility] Lab Results: +/- 30 days of the encounter This section includes the Chemistry and Hematology Lab Results on record with [place] for the patient. Radiology Reports and Pathology Reports are provided separately, in subsequent sections. Lab Results This section contains the Chemistry/Hematology Results that were resulted 30 days before or 30 daysafter the date of the Encounter. Date/Time Source Result Type Result - Unit Interpretation Reference Range Comment April 10, 2024 11:07 AM [facility] BASIC METABOLIC PANEL (non-fasting) Specimen Type: SERUM No comment entered. Ordering Provider: CLYDE TORO Report Released Date/Time: April 10, 2024 10:54 AM Reporting Lab: [facility] [address] [facility] [address] Performing Lab: [address] [address] UREA NITROGEN 21 mg/dL 7-25 GLUCOSE 115 mg/dL H 65-100 SODIUM 140 mmol/L 135-145 POTASSIUM 4.2 mmol/L 3.5-5.0 CHLORIDE 103 mmol/L 100-110 CO2 26 meq/L 20-30 CREATININE, Serum 1.14 mg/dL 0.50-1.40 eGFR(CKD-EPI 2020) 74 mL/min >60 April 10, 2024 11:07 AM [facility] LIPID PANEL FASTING Specimen Type: SERUM No comment entered. Ordering Provider: CLYDE TORO Report Released Date/Time: April 10, 2024 10:54 AM Reporting Lab: [address] [address] Performing Lab: [address] [address] CHOLESTEROL 182 mg/dL TRIGLYCERIDE 94 mg/dL 0-150 LDL calculated 118 mg/dL 0-129 CHOL/HDL 4.0 HDL CHOLESTEROL 45 mg/dL 40-60 April 10, 2024 11:07 AM [facility] LIVER FUNCTION Specimen Type: SERUM No comment entered. Ordering Provider: CLYDE TORO Report Released Date/Time: April 10, 2024 10:54 AM Reporting Lab: [address] [address] Performing Lab: [address] [address] PROTEIN,TOTAL 7.2 g/dL 6.0-8.3 ALBUMIN 4.2 g/dL 3.5-5.0 ALKALINE PHOSPHATASE 45 U/L 40-150 AST 42 U/L H 5-34 ALT 32 U/L BILIRUBIN, TOTAL 0.7 mg/dL 0.2-1.2 April 10, 2024 11:07 AM [facility] CBC AND DIFF (AUTO) Specimen Type: BLOOD No comment entered. Ordering Provider: CLYDE TORO Report Released Date/Time: April 10, 2024 10:54 AM Reporting Lab: [facility] [address] [facility] [address] Performing Lab: [facility] [address] [address] WBC 6.15 10*3/uL 4.50-11.00 RBC 4.50 10*6/uL 4.23-5.66 HGB 15.2 g/dL 12.8-17 HCT 44.2 39.2-50.4 MCV 98.2 fL 82-99 MCHC 34.4 g/dL 30.8-35.1 PLT 196 10*3/uL 140-360 RDW-CV 12.7 12.0-16.0 Glasscock, Abs 0.55 10*3/uL 0.30-1.10 MCH 33.8 pg H 26.2-32.6 Neut % 53.4 43.7-75.8 Lymph % 35.9 14.0-42.3 Glasscock % 8.9 5.1-13.7 Eos % 0.8 0.4-6.8 Baso % 0.5 0.1-2.0 Neut, Abs 3.28 10*3/uL 2.20-7.60 Lymph, Abs 2.21 10*3/uL 1.00-3.20 Eos, Abs 0.05 10*3/uL 0.03-0.44 Baso, Abs 0.03 10*3/uL 0.01-0.13 Immature Gran % 0.5 0.0-0.7 Immature Gran, Abs 0.03 10*3/uL 0.00-0.06 April 10, 2024 11:07 AM [facility] HEMOGLOBIN A1C PANEL Specimen Type: BLOOD Comment: Values obtained from A1C measurements can vary. For atypical A1C assays, a reported value of 7.0 could actually be between 6.72 and 7.28 if measured by a reference method. A reported value of 9.0 could actually be between 8.73 and 9.27. Ref: http://www.ngs p.org/CAPdata. asp Ordering Provider: CLYDE TORO Report Released Date/Time: April 10, 2024 10:54 AM Reporting Lab: [facility] [address] [facility] [address] Performing Lab: [address] [address] HEMOGLOBIN A1C 6.0 H 4.0-5.6 April 10, 2024 11:07 AM [facility] TSH Specimen Type: SERUM No comment entered. Ordering Provider: CLYDE TORO Report Released Date/Time: April 10, 2024 10:54 AM Reporting Lab: [address] [address] Performing Lab: [address] [address] TSH 1.06 u[IU]/mL 0.35-5.00 Social History: Smoking Status (Most current) and Tobacco Use (All prior to encounter date) This section includes the most current, and the historical, smoking and tobacco- related health factors from the [place] facility where the Encounter took place. Current Smoking Status This section includes the most current smoking, or tobacco-related health factor, from the [place] facility where the Encounter took place. Date/Time Current Smoking Status Comment Facil ity Mar 03, 2024 02:37 PM VA-TOBACCO USE 1 T O < 5 YEARS [facility] Tobacco Use History This section includes a history of the smoking, or tobacco-related health factors, that were collected on or before the date of the Encounter. The data comes from the [place] facility where the Encounter took place. Date/Time Smoking Status/Tobacco Use Comment F acility Mar 03, 2024 02:37 PM VA-TOBACCO USE 1 TO < 5 YEARS [facility] [place] [facility] Mar 03, 2024 02:37 PM VA-TOBACCO USE ADVICE [facility] [place] [facility] Mar 03, 2024 02:37 PM VA-TOBACCO USE PACE ANALYST NO [facility] [place] [facility] Mar 03, 2024 02:37 PM VA-TOBACCO USE MED NO [facility] [place] [facility] Mar 03, 2024 02:37 PM VA-TOBACCO USER SOME DAYS [facility] [place] [facility] Encounter Notes: All associated encounter notes This section contains the clinical notes associated to the Encounter. Date/Time Encounter Note(s) Provider Source May 04, 2024 02:00 PM MENTAL HEALTH NOTE: LOCAL TITLE: SHARED DECISION MAKING STANDARD TITLE: MENTAL HEALTH NOTE DATE OF NOTE: MAY 04, 2024@14:00 ENTRY DATE: MAY 04, 2024@15:35:13 AUTHOR: AD MENDOZA COSIGNER: ANAT MARIE URGENCY: STATUS: COMPLETED SHARED DECISION MAKING Has ADDENDA SESSION FOCUS: The aim of this shared decision making session is to provide relevant information about treatment options and collaboratively decide on a treatment plan. 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 EXPLORED OPTIONS [X] Shared comprehensive information about treatment options including research support and likely outcomes [X] Discussed [facility] consistent care including: CPT, WET, and supportive psychotherapy Additional information: DECISION [X] Explored 's values and preferences including: n/a [X] Collaboratively reached treatment decision [ ] [place] deferred a treatment decision [ ] was provided additional resources (i.e., brochures, online resources) on treatment options to review independently Additional information: EPISODIC CARE [X] [place] was oriented to episodic care and time-limited therapy [X] Discussed reactions and answered questions Additional information: [place] would prefer general outpatient mental health treatment rather than a trauma-focused treatment. He stated that he would like to work on stress/anxiety management skills in addition to trauma-focused work. ASSESSMENT PLAN [X] Consult entered for desired treatment [X] Next steps: outpatient mental health clinic; was made aware of waiting list. Additional information: [place] was open to working with an internal medicine physician assistant. [place] Video Connect (VVC) Standard Documentation [facility] Clinician Resources Only: E911 (Emergency Call Relay Center): [phone] [employer] Crisis Line - 988 then press #1. [facility] Suicide Coordinator [phone], Ext. [phone]; Back-up Ext. [phone] [place] Police, ARTIEAlex [phone] Introduction: Visit is being conducted by [place] [employer]. identified with 2 identifiers: [X] Full Name [X] Date of [ ] VA ID Card Emergency Plan: [place] confirmed and/or provided the following information in case of emergency or technology failure. PATIENT PHONE - PHONE NUMBER [CELLULAR] - Is patient phone number correct, if not, enter below: [place]'s phone number: KELSEY FRENCH [address] [place] [address] [address] [place], [place], [address] [place]'s present location and address for appointment: [address] [place] [address] [place] [address] [place]'s emergency contact name and phone number: Genevieve, reported that location is private and safe: Yes Informed Consent: informed of the risks and benefits of Telehealth video care. [place] has the right to refuse video services. If refuses video visit, a [id number] visit will be scheduled. verbalized consent for this video visit: Yes provided consent for any other persons present for visit: N/A If yes, who and relationship to patient: Secure visit: Visit was locked for security and privacy:Yes *Due to [facility] issues, session was switched over to telephone. /buddy/ Ad Mendoza MA Pharmacy Benefits Coordinator Signed: 05/08/2024 16:13 /buddy/ Anat Marie PsyD PTSD/TINA SPECIALIST Cosigned: 05/09/2024 11:21 05/09/2024 ADDENDUM STATUS: COMPLETED I have reviewed this case and concur with the clinical impressions and recommendations made by this trainee who is under my clinical supervision. /buddy/ Anat Marie PsyD PTSD/TINA SPECIALIST Signed: 05/09/2024 11:25 [facility]
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
--- OUTSIDE RECORDS SUMMARY | 2024-12-06 08:28 | XMS_ITS | Encounter Summary ---
Author Name [facility] [place] [facility] Address [address] [place] [address] Care Team Providers Care Photogrammetric Surveyor Name Role Phone CLYDE TORO Primary Care Provider Unavailabl e Selected Encounter This section includes the information on record at [place] for the Encounter. Date/Time Encounter Type Encounter Description Reason Pro vider Source Dec 04, 2024 03:00 PM Outpatient Encounter MENTAL HEALTH [facility] Encounter Template Text not used by [place] Plan of Treatment: Future Appointments (+ 6 months) and Future Tests (+/- 45 days) The Plan of Treatment section includes future care activities for the patient from all [place] treatmentfacilities. This section includes future appointments and future orders which are active, pending or scheduled. Future Appointments This section includes appointments that were scheduled to occur 6 months from the date of the Encounter, up to a maximum of 20 appointments. The data comes from all [place] treatment facilities. Appointment Date/Time Appointment Type Appointme nt Facility Name Dec 18, 2024 03:00 PM AMBULATORY - PSYCHIATRY [facility] April 17, 2025 09:30 AM AMBULATORY - MEDICINE [facility] Social History: Smoking Status (Most current) and Tobacco Use (All prior to encounter date) This section includes the most current, and the historical, smoking and tobacco- related health factors from the [facility] facility where the Encounter took place. Current Smoking Status This section includes the most current smoking, or tobacco-related health factor, from the [place] facility where the Encounter took place. Date/Time Current Smoking Status Comment Hernandez manuel Mar 03, 2024 02:37 PM VA-TOBACCO USE 1 T O < 5 YEARS [facility] Tobacco Use History This section includes a history of the smoking, or tobacco-related health factors, that were collected on or before the date of the Encounter. The data comes from the [place] facility where the Encounter took place. Date/Time Smoking Status/Tobacco Use Comment F acility Mar 03, 2024 02:37 PM VA-TOBACCO USE 1 TO < 5 YEARS [facility] [place] [facility] Mar 03, 2024 02:37 PM VA-TOBACCO USE ADVICE [facility] [place] [facility] Mar 03, 2024 02:37 PM VA-TOBACCO USE HATCHERY HELPER NO [facility] [place] [facility] Mar 03, 2024 02:37 PM VA-TOBACCO USE MED NO [facility] [place] [facility] Mar 03, 2024 02:37 PM VA-TOBACCO USER SOME DAYS [facility] [place] [facility] Encounter Notes: All associated encounter notes This section contains the clinical notes associated to the Encounter. Date/Time Encounter Note(s) Provider Source Dec 04, 2024 12:58 PM MENTAL HEALTH DIAG NOSTIC STUDY NOTE: LOCAL TITLE: MENTAL HEALTH DIAGNOSTIC STUDY STANDARD TITLE: MENTAL HEALTH DIAGNOSTIC STUDY NOTE DATE OF NOTE: DEC 04, 2024@12:58:44 ENTRY DATE: DEC 04, 2024@12:58:44 AUTHOR: KARINA HILTON COSIGNER: URGENCY: STATUS: COMPLETED Assessments were sent to the [facility] via text/email. These assessments were completed by KELSEY FRENCH on their own device on 12/04/2024 10:16:55 AM. GENERAL ANXIETY DISORDER-7 (KASIA-7) Patient reported being bothered by the following over the last two weeks: 1. Feeling nervous, anxious or on edge: Several days 2. Not being able to stop or control worrying: More than half the days 3. Worrying too much about different things: Several days 4. Trouble relaxing: Several days 5. Feeling restless (hard to sit still): Several days 6. Becoming easily annoyed or irritable: Several days 7. Afraid as if something awful might happen: Not at all KASIA-7 total score = 7 0-4=minimal symptoms 5-9=mild symptoms 10-14=moderate symptoms 15-21=severe symptoms The patient stated that the anxiety symptoms made it somewhat difficult to work, take care of things at home, or get along with others. KASIA-7 Total Score (past 180 days): 12/04/2024 7 10/30/2024 9 /buddy/ KARINA HILTON, Ph.D Clinical Psychologist Signed: 12/04/2024 14:11 KARINA HILTON [facility]
--- OUTSIDE RECORDS SUMMARY | 2024-12-06 08:28 | XMS_ITS ---
Author Name [facility] ([place]) Organization [facility] of [facility] ([place]) Address [address] [place] [address] Care Team Providers Care Assistant Cook Name Role Phone CLYDE TORO Primary Care Provider Unavailabl e Selected Encounter This section includes the information on record at [place] for the Encounter. Date/Time Encounter Type Encounter Description Reason Provider Source April 10, 2024 10:00 AM OFFICE O/P EST MOD 30 MIN PRIMARY CARE/MEDICINE ICD-10-CM Z77.29 Contact with and exposure to other hazardous substances CLYDE TORO [facility] Encounter Template Text not used by [place] Assessments - Encounter Diagnoses This section includes the primary and secondary diagnoses documented for the Encounter. Date/Time Primary/Secondary Diagnosis Diagnosis Name Provider Source April 10, 2024 03:54 PM PRIMARY Contact with and exposure to other hazardous substances CLYDE TORO [place] [facility] [place] [facility] April 10, 2024 03:54 PM SECONDARY Anxiety disorder, unspecified JACKY TOROA [place] [facility] [place] [facility] April 10, 2024 03:54 PM SECONDARY Essential (primary) hypertension JACKY TOROA [place] [facility] [place] [facility] April 10, 2024 03:54 PM SECONDARY Obstructive sleep apnea (adult) (pediatric) CORTEZ,CLYDE [place] [facility] [place] [facility] April 10, 2024 03:54 PM SECONDARY Personal history of other venous thrombosis and embolism JACKY TOROA [place] [facility] [place] [facility] April 10, 2024 03:54 PM SECONDARY Type 2 diabetes mellitus without complications JACKY TOROA [place] [facility] [place] [facility] April 10, 2024 03:54 PM SECONDARY Unspecified asthma, uncomplicated CLYDE TORO [facility] Plan of Treatment: Future Appointments (+ 6 months) and Future Tests (+/- 45 days) The Plan of Treatment section includes future care activities for the patient from all [place] treatmentfacilities. This section includes future appointments and future orders which are active, pending or scheduled. Future Appointments This section includes appointments that were scheduled to occur 6 months from the date of the Encounter, up to a maximum of 20 appointments. The data comes from all [place] treatment facilities. Appointment Date/Time Appointment Type Appointme nt Facility Name Apr 24, 2024 01:00 PM AMBULATORY - PSYCHIATRY [facility] Apr 27, 2024 02:00 PM AMBULATORY PSYCHIATRY [facility] May 04, 2024 02:00 PM AMBULATORY PSYCHIATRY [facility] Lab Results: +/- 30 days of the encounter This section includes the Chemistry and Hematology Lab Results on record with [place] for the patient. Radiology Reports and Pathology Reports are provided separately, in subsequent sections. Lab Results This section contains the Chemistry/Hematology Results that were resulted 30 days before or 30 daysafter the date of the Encounter. Date/Time Source Result Type Result - Unit Interpretation Reference Range Comment April 10, 2024 11:07 AM [facility] BASIC METABOLIC PANEL (non-fasting) Specimen Type: SERUM No comment entered. Ordering Provider: CLYDE TORO Report Released Date/Time: April 10, 2024 10:54 AM Reporting Lab: [facility] [address] [facility] [address] Performing Lab: [address] [address] UREA NITROGEN 21 mg/dL 7-25 GLUCOSE 115 mg/dL H 65-100 SODIUM 140 mmol/L 135-145 POTASSIUM 4.2 mmol/L 3.5-5.0 CHLORIDE 103 mmol/L 100-110 CO2 26 meq/L 20-30 CREATININE, Serum 1.14 mg/dL 0.50-1.40 eGFR(CKD-EPI 2020) 74 mL/min >60 April 10, 2024 11:07 AM [facility] LIPID PANEL FASTING Specimen Type: SERUM No comment entered. Ordering Provider: CLYDE TORO Report Released Date/Time: April 10, 2024 10:54 AM Reporting Lab: [facility] [address] [facility] [address] Performing Lab: [address] [address] CHOLESTEROL 182 mg/dL TRIGLYCERIDE 94 mg/dL 0-150 LDL calculated 118 mg/dL 0-129 CHOL/HDL 4.0 HDL CHOLESTEROL 45 mg/dL 40-60 April 10, 2024 11:07 AM [facility] LIVER FUNCTION Specimen Type: SERUM No comment entered. Ordering Provider: CLYDE TORO Report Released Date/Time: April 10, 2024 10:54 AM Reporting Lab: [address] [address] Performing Lab: [address] [address] PROTEIN,TOTAL 7.2 g/dL 6.0-8.3 ALBUMIN 4.2 g/dL 3.5-5.0 ALKALINE PHOSPHATASE 45 U/L 40-150 AST 42 U/L H 5-34 ALT 32 U/L BILIRUBIN, TOTAL 0.7 mg/dL 0.2-1.2 April 10, 2024 11:07 AM [facility] CBC AND DIFF (AUTO) Specimen Type: BLOOD No comment entered. Ordering Provider: CLYDE TORO Report Released Date/Time: April 10, 2024 10:54 AM Reporting Lab: [address] [address] Performing Lab: [address] [address] WBC 6.15 10*3/uL 4.50-11.00 RBC 4.50 10*6/uL 4.23-5.66 HGB 15.2 g/dL 12.8-17 HCT 44.2 39.2-50.4 MCV 98.2 fL 82-99 MCHC 34.4 g/dL 30.8-35.1 PLT 196 10*3/uL 140-360 RDW-CV 12.7 12.0-16.0 Citrus, Abs 0.55 10*3/uL 0.30-1.10 MCH 33.8 pg H 26.2-32.6 Neut % 53.4 43.7-75.8 Lymph % 35.9 14.0-42.3 Citrus % 8.9 5.1-13.7 Eos % 0.8 0.4-6.8 Baso % 0.5 0.1-2.0 Neut, Abs 3.28 10*3/uL 2.20-7.60 Lymph, Abs 2.21 10*3/uL 1.00-3.20 Eos, Abs 0.05 10*3/uL 0.03-0.44 Baso, Abs 0.03 10*3/uL 0.01-0.13 Immature Gran % 0.5 0.0-0.7 Immature Gran, Abs 0.03 10*3/uL 0.00-0.06 April 10, 2024 11:07 AM [facility] HEMOGLOBIN A1C PANEL Specimen Type: BLOOD Comment: [...] April 10, 2024 10:54 AM Reporting Lab: [address] [address] Performing Lab: [address] [address] HEMOGLOBIN A1C 6.0 H 4.0-5.6 April 10, 2024 11:07 AM [facility] TSH Specimen Type: SERUM No comment entered. Ordering Provider: CLYDE TORO Report Released Date/Time: April 10, 2024 10:54 AM Reporting Lab: [address] [address] Performing Lab: [place] [facility] [place] [facility] [address] [facility] [address] TSH 1.06 u[IU]/mL 0.35-5.00 Vital Signs: All taken on the encounter date This section contains inpatient and outpatient Vital Signs collected on the date of the Encounter. Date/Time Temperature Pulse Blood Pressure Respiratory Rate SP02 Pain Height Weight Body Mass Index Source April 10, 2024 10:05 AM 97.6 73 126/80 14 93 5 73 246 33 [place] [facility] [place] [facility] Social History: Smoking Status (Most current) and Tobacco Use (All prior to encounter date) This section includes the most current, and the historical, smoking and tobacco- related health factors from the [place] facility where the Encounter took place. Current Smoking Status This section includes the most current smoking, or tobacco-related health factor, from the [place] facility where the Encounter took place. Date/Time Current Smoking Status Comment Facil ity Mar 03, 2024 02:37 PM VA-TOBACCO USE 1 T O < 5 YEARS [place] [facility] Tobacco Use History This section includes a history of the smoking, or tobacco-related health factors, that were collected on or before the date of the Encounter. The data comes from the [place] facility where the Encounter took place. Date/Time Smoking Status/Tobacco Use Comment F acility Mar 03, 2024 02:37 PM VA-TOBACCO USE 1 TO < 5 YEARS [facility] [place] [facility] Mar 03, 2024 02:37 PM VA-TOBACCO USE ADVICE [facility] [place] [facility] Mar 03, 2024 02:37 PM VA-TOBACCO USE GERENTOLOGICAL PHYSIOTHERAPIST NO [facility] [place] [facility] Mar 03, 2024 02:37 PM VA-TOBACCO USE MED NO [place] [facility] [place] [facility] Mar 03, 2024 02:37 PM VA-TOBACCO USER SOME DAYS [place] [facility] [place] [facility] Encounter Notes: All associated encounter notes This section contains the clinical notes associated to the Encounter. Date/Time Encounter Note(s) Provider Source April 13, 2024 04:02 PM LETTERS: LOCAL TITLE: PATIENT LETTER (B) STANDARD TITLE: LETTERS DATE OF NOTE: APRIL 13, 2024@16:02 ENTRY DATE: APRIL 13, 2024@16:02:40 AUTHOR: CLYDE TORO EXP COSIGNER: URGENCY: STATUS: COMPLETED [facility] [employer] [facility] Toll Free Number Telephone Assistance can be reached at extension [phone] [place] [address] DR JOY, [place], [id number] APRIL 13, 2024 Dear KELSEY, Below are the results of your recent blood work. One of your liver functions was slightly elevated this can be from your medication atorvastatin or sometimes from drinking too much alcohol. I would let your doctor from [place] know but he likely has been following these values. Your Hgb A1C which measures your average blood sugar was also slightly elevated we can recheck this as well at your next visit. Otherwise all your blood work looks great! Tips for a healthy lifestyle: Eat a low-carbohydrate diet. Minimize sugars, refined carbs, and alcohol. Maintain a healthy weight. Perform high-intensity exercise if you can do so safely. Exercise regularly: Aim for at least 30 minutes of physical activity on most days of the week. Avoid sugar and refined carbohydrates. Consider avoiding saturated fats. Increase your intake of fiber-rich plants. HGB A1C (WR): 6.0 H WBC: 6.15 RBC: 4.50 HGB: 15.2 HCT: 44.2 MCV: 98.2 MCHC: 34.4 RDW: 12.7 PLT: 196 MCH: 33.8 H Neut %: 53.4 Lymph %: 35.9 Citrus %: 8.9 Eos %: 0.8 Baso %: 0.5 Neut, Abs: 3.28 Lymph, Abs: 2.21 Citrus, Abs: 0.55 Eos, Abs: 0.05 Baso, Abs: 0.03 Immature Granulocytes %: 0.5 Immature Granulocytes, Abs: 0.03 GLUCOSE: 115 H UREA NITROGEN: 21 SODIUM: 140 POTASSIUM: 4.2 CHLORIDE: 103 CO2: 26 CHOLESTEROL: 182 PROTEIN,TOTAL: 7.2 ALBUMIN: 4.2 ALKALINE PHOSPHATASE: 45 SGOT: 42 H SGPT: 32 TRIGLYCERIDE: 94 LDL CHOL: 118 CHOL/HDL RATIO: 4.0 HDL: 45 BILIRUBIN,TOT.: 0.7 TSH (Access): 1.06 CREATININE-EGFR: 1.14 eGFR CKD-EPI 2020: 74 Below are a listing of upcoming appointments you have scheduled at [facility]: 04/24/2024 13:00 CWM/NO/VVC/MHC/MBARR 04/17/2025 09:30 CWM/NO/PACT 5 If you have any questions please let me know otherwise see you at your next scheduled visit. Sincerely, JUNI Cheung Family Nurse Practitioner Women's [facility] PACT 5 Primary Care [facility] [address] [facility] [address] [place] [address] [place] [address] [phone] [facility] [address] [facility] [address] [place] [address] [place] [address] CLYDE TORO [place] [facility] [place] [facility] April 10, 2024 10:12 AM PRIMARY CARE NURSE PRACTITIONER OUTPATIENT NOTE: LOCAL TITLE: NURSE PRACTITIONER OUTPATIENT NOTE STANDARD TITLE: PRIMARY CARE NURSE PRACTITIONER OUTPATIENT NOTE DATE OF NOTE: APRIL 10, 2024@10:12 ENTRY DATE: APRIL 10, 2024@10:12:23 AUTHOR: CLYDE TORO EXP COSIGNER: URGENCY: STATUS: COMPLETED is here for an annual exam Community Providers: [facility] but might start getting all care from here. 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 History of deep vein thrombosis 2. Asthma 3. Benign essential hypertension 4. Posttraumatic stress disorder 5. Anxiety 6. 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[place] -[employer]- General: no fever, no unexplained weight loss or gain HEENT: denies vision changes, OP pain CV: denies CP, SOB, palpitations Lung: denies BAHENA, cough, wheezing Abd: denies n/v/d : denies dysuria, penile d/c, hematuria, change in urinary flow Ext: denies edema, weakness, falls Skin: denies rash or other lesions Psych: denies depression, SI Neuro: denies weakness, dizziness, falls, COLEMAN -Vitals- 97.6 F [36.4 C] (04/10/2024 10:05) 73 (04/10/2024 10:05) 14 (04/10/2024 10:05) 126/80 (04/10/2024 10:05) 5 (04/10/2024 10:05) 73 in [185.4 cm] (04/10/2024 10:05) 246 lb [111.58 kg] (04/10/2024 10:05) BMI: 32.5 -Physical Exam- General: NAD HEENT: PERRL, EOMI, OP clear, TMs nl b/l, no LAD CV: S1S2, rrr, no m/r/g noted Lung: CTA b/l, no wheeze, rhonchi, or crackles, good breath sounds to bases b/l Abd: soft, NTND, NABS x4, no HSM Ext: no edema, warm and well perfused b/l Skin: no lesions Neuro: CN 2-12 grossly intact, 5/5 strength b/l, nl gait, 2+ patellar reflex b/l Psych: A&O x3, appropriate mood and affect Assessment/Plan: #DVT -currently on rivaroxaban. #Anxiety -Has been more stressed with work -MH referral placed #Nightmares -Cont. prazosin at night #JEREMY -Cont. CPAP #HTN -Cont. lisinopril #Type II DM -Cont. Ozempic and Atorva Patient prefers to follow up with off-site PCP regularly for titration of meds and management of chronic conditions. He will come here annually. Advised if anything changes and no longer following with off-site PCP, please call front office supervisor to schedule sooner appt with VA PCP. The above plan and education was reviewed with the Fleming and she verbalized understanding. -Clinical Reminders- Toxic Exposure Screening: The Fleming/caregiver was asked if they believe the Fleming experienced any toxic exposure(s), such as Airborne Hazards and Open Burn Pit, [place] related exposures, Agent Walsh, Radiation, contaminated water at [place] or other such exposures, while serving in the [employer]. /caregiver believes the Fleming was exposed to the following while serving in the [employer]: Airborne Hazards and Open Burn Pit: /caregiver was made aware of educational resources that includes information on the Registry Program, presumptive conditions and how to file a claim. Printed information was offered and provided if desired. [place] related exposures: /caregiver was made aware of educational resources that includes information on the Registry Program, presumptive conditions and how to file a claim. Printed information was offered and provided if desired. /caregiver has health or medical concerns related to their concern of environmental exposure. Concern: PTSD Benefits/Claims Questions /caregiver was informed of local point of contact. Contact information for local resources: Benefits/Claim for Disability Compensation Questions: National [facility] [place] Healthcare Enrollment: [facility] Eligibility direct dialed at [phone] Registry: Environmental Health Coordinator ext. [phone] The following connections were provided to the Fleming/caregiver: Consult/Referral to Registry Program Screen for Embedded Fragments: SCREEN FOR EMBEDDED FRAGMENTS The patient reports no embedded fragments. Hepatitis C Testing: Patient declines HCV lab test. HIV Screening: Patient has been offered HIV testing and has declined. I have explained that HIV testing is recommended for all adults, even if all risk factors are absent. The patient was educated on the risk of delayed screening. Medication Reconciliation: Outpatient: Has the patient been taking medications as documented in the EMLR? YES: The patient has been taking medications as documented in the EMLR. Essential Medication List for Review used to complete this medication reconciliation. INCLUDED IN THIS LIST: Alphabetical list of active outpatient prescriptions dispensed from this VA (local) and dispensed from another VA or DoD facility (remote) as well as inpatient orders (local, pending and active), local clinic medications, locally documented non-VA medications, and local prescriptions that have or been discontinued in the past 90 days. - All changes in medications, including all non-VA/Herbal/OTC medications were entered into CPRS. - If there were any medications the patient should no longer take, they were discontinued. - The patient/caregiver was instructed to update this list, discard old lists, and take this list to the next appointment, whether with a VA or non-VA provider. /buddy/ JUNI VILLEGAS Nurse Practitioner Signed: 04/10/2024 15:53 CLYDE TORO [place] [facility] [place] [facility] April 10, 2024 09:57 AM PREVENTIVE MEDICINE NURSING NOTE: LOCAL TITLE: CLINICAL REMINDERS/NURSING STANDARD TITLE: PREVENTIVE MEDICINE NURSING NOTE DATE OF NOTE: APRIL 10, 2024@09:57 ENTRY DATE: APRIL 10, 2024@09:58:01 AUTHOR: LISS EPPERSON COSIGNER: URGENCY: STATUS: COMPLETED Tobacco Pack Year History: Patient never smoked cigarettes or smoked FEWER THAN 100 cigarettes/lifetime Advance Directive Screen MH AD: Patient has an up-to-date Advance Directive at an outside, non-va facility and was asked to forward a copy to his/her clinician. Suicide Screen: C-SSRS Screening [place] Suicide Severity Rating Scale (C-SSRS) screener 1. Over the past month, have you wished you were or wished you could go to sleep and not wake up? No 2. Over the past month, have you had any actual thoughts of killing yourself? No 3. Over the past month, have you been thinking about how you might do this? Response not required due to responses to other questions. 4. Over the past month, have you had these thoughts and had some intention of acting on them? Response not required due to responses to other questions. 5. Over the past month, have you started to work out or worked out the details of how to kill yourself? Response not required due to responses to other questions. 6. If yes, at any time in the past month did you intend to carry out this plan? Response not required due to responses to other questions. 7. In your lifetime, have you ever done anything, started to do anything, or prepared to do anything to end your life (for example, collected pills, obtained a gun, gave away valuables, went to the roof but didn't jump)? No 8. If YES, was this within the past 3 months? Response not required due to responses to other questions. Depression Screening: Perform PHQ-2 A PHQ-2 screen was performed. The score was 2 which is a negative screen for depression. Over the past two weeks, how often have you been bothered by the following problems? 1. Little interest or pleasure in doing things Several days 2. Feeling down, depressed, or hopeless Several days Influenza Immunization: The patient has received the seasonal influenza vaccine for the current season at another location. 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 The has not already been diagnosed as having TBI during post 08/02 deployment. 1. The Fleming experienced the following events during deployment: Patient denies experiencing any TBI related events during deployment. Negative Screen Sexual Orientation: The patient thinks of their sexual orientation as: Straight or Heterosexual RHS Screen: RHS Screen Session Format: Face to Face Environmental Check Upon inquiry, the individual reports that the environment is safe to proceed. Informed Consent to Screen and Document The individual consents to proceed with screening. The individual consents to documentation of responses. PRIMARY SCREEN: In the past 12 months, how often did a current or former intimate partner (e.g., boyfriend, girlfriend, , , sexual partner): 1. Scream or curse at you Never 2. Insult or talk down to you Never 3. Threaten you with harm Never 4. Physically hurt you Never 5. Force or pressure you to have sexual contact against your will, or when you were unable to say no Never ?? The HITS tool (items 1-4 above) is [place] copyright protected by Daniel Nascimento MD, and the user has full rights to use it throughout the [place] system. PRIMARY SCREEN RESULT: The Primary Screen is NEGATIVE. The individual answered never to all forms of IPV above (i.e., answered never to all 5 items) The individual accepts education and/or resources: No EDUCATION: The individual indicated readiness to learn. Education offered during this session as noted above. The individual indicated understanding by asking relevant questions and making appropriate comments. No barriers to learning were observed or identified. COVID-19 Immunization: Refused Moderna Monovalent COVID-19 vaccine Immunization: COVID-19 (MODERNA), MRNA, LNP-S, PF, 50 MCG/0.5 ML (AGES 12+ YEARS) Refusal Reason: PATIENT DECISION Patient refuses all immunization(s) in the COVID-19 group Date Documented: 04/10/24 10:09 /buddy/ LISS EPPERSON, POLO, RN, CNL PRIMARY CARE TEAM NURSE Signed: 04/10/2024 10:10 LISS EPPERSON CNTL [facility]
--- OUTSIDE RECORDS SUMMARY | 2024-12-06 08:28 | XMS_ITS | Encounter Summary ---
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 problem. Either having a nightmare and waking up, or just waking up very early, and not being able to fall back asleep 5.5-6.5; feels he should be sleeping 7-8. Every night. Definitely started after. Subtotal arousal: 06/14 (criterion met) 21. Onset of symptoms Total # months delay in onset Same year, later in 2003 With delayed onset (> 6 months)? NO 22. Duration of symptoms Total # months duration 10 yrs Duration more than 1 month? YES 23. Subjective distress 2 Moderate, distress clearly present but still manageable I would say that a lot comes to mind. A lot, but getting better. 24. Impairment in social functioning 2 Moderate impact, definite impairment but many aspects of social functioning still intact Examples: Yes. Being short with my and my youngest son. 25. 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 Yes, affected my work. Concentration has been difficult, feelings of inadequacy sometimes ( I am older, and while I am good at technology, I have a channel manager who micromanages me more than I am used to ). 26. Global validity 1 Good, factors present that may adversely affect validity Comments: The potential for compensation related to problems occurring during the may impact validity. 27. Global severity 1 Mild, minimal distress or functional impairment 5 Insufficient information 29. (I1) Depersonalization: Persistent or recurrent experiences of feeling detached from, and as if one were an outside observer of, one's mental processes or body (e.g., feeling as though one were in a dream; feeling a sense of unreality of self or body or of time moving slowly). 0 Absent 30. (I2) Derealization: Persistent or recurrent experiences of unreality of surroundings (e.g., the world around the individual is experienced as unreal, dreamlike, distant, or distorted). 0 Absent /buddy/ Ad Mendoza MA [employer] Business Analyst Signed: 05/08/2024 16:13 /buddy/ Yanci Marie PsyD PTSD/TINA SPECIALIST Cosigned: 05/09/2024 11:24 05/09/2024 ADDENDUM STATUS: COMPLETED I have reviewed this case and concur with the clinical impressions and recommendations made by this trainee who is under my clinical supervision. /buddy/ Yanci Marie PsyD PTSD/TINA SPECIALIST Signed: 05/09/2024 11:25 [facility]
--- OUTSIDE RECORDS SUMMARY | 2024-12-06 08:28 | XMS_ITS | Encounter Summary ---
Author Name [facility] Organization [facility] [place] Address [address] [place] [address] Care Team Providers Care Mold Filler Plastic Dolls Name Role Phone CLYDE TORO Primary Care Provider Unavailabl e Selected Encounter This section includes the information on record at OR for the Encounter. Date/Time Encounter Type Encounter Description Reason Pro vider Source IHE Encounter Template Text not used by [place]
--- OUTSIDE RECORDS SUMMARY | 2024-12-06 08:28 | XMS_ITS ---
Author Name [facility] Address [address] [place] [address] Care Team Providers Care Tool Salvage Worker Name Role Phone CLYDE TORO Primary Care Provider Unavailabl e Selected Encounter This section includes the information on record at CT for the Encounter. Date/Time Encounter Type Encounter Description Reason Provider Source Apr 24, 2024 03:57 PM Outpatient Encounter TELEPHONE/ANCILLARY MAYI FORBES Encounter Template Text not used by CT Plan of Treatment: Future Appointments (+ 6 months) and Future Tests (+/- 45 days) The Plan of Treatment section includes future care activities for the patient from all CT treatmentfacilities. This section includes future appointments and future orders which are active, pending or scheduled. Future Appointments This section includes appointments that were scheduled to occur 6 months from the date of the Encounter, up to a maximum of 20 appointments. The data comes from all CT treatment facilities. Appointment Date/Time Appointment Type Appointme nt Facility Name Apr 27, 2024 02:00 PM AMBULATORY - PSYCHIATRY [facility] May 04, 2024 02:00 PM [facility] Oct 23, 2024 03:00 PM AMBULATORY PSYCHIATRY [facility] Lab Results: +/- 30 days of the encounter This section includes the Chemistry and Hematology Lab Results on record with CT for the patient. Radiology Reports and Pathology Reports are provided separately, in subsequent sections. Lab Results This section contains the Chemistry/Hematology Results that were resulted 30 days before or 30 daysafter the date of the Encounter. Date/Time Source Result Type Result - Unit Interpretation Reference Range Comment April 10, 2024 11:07 AM [facility] BASIC METABOLIC PANEL (non-fasting) Specimen Type: SERUM No comment entered. Ordering Provider: CLYDE TORO Report Released Date/Time: April 10, 2024 10:54 AM Reporting Lab: [facility] [address] [facility] [address] Performing Lab: [address] [address] UREA NITROGEN 21 mg/dL 7-25 GLUCOSE 115 mg/dL H 65-100 SODIUM 140 mmol/L 135-145 POTASSIUM 4.2 mmol/L 3.5-5.0 CHLORIDE 103 mmol/L 100-110 CO2 26 meq/L 20-30 CREATININE, Serum 1.14 mg/dL 0.50-1.40 eGFR(CKD-EPI 2020) 74 mL/min >60 April 10, 2024 11:07 AM [facility] LIPID PANEL FASTING Specimen Type: SERUM No comment entered. Ordering Provider: CLYDE TORO Report Released Date/Time: April 10, 2024 10:54 AM Reporting Lab: [facility] [address] [facility] [address] Performing Lab: [address] [address] CHOLESTEROL 182 mg/dL TRIGLYCERIDE 94 mg/dL 0-150 LDL calculated 118 mg/dL 0-129 CHOL/HDL 4.0 HDL CHOLESTEROL 45 mg/dL 40-60 April 10, 2024 11:07 AM [facility] LIVER FUNCTION Specimen Type: SERUM No comment entered. Ordering Provider: CLYDE TORO Report Released Date/Time: April 10, 2024 10:54 AM Reporting Lab: [address] [address] Performing Lab: [address] [address] PROTEIN,TOTAL 7.2 g/dL 6.0-8.3 ALBUMIN 4.2 g/dL 3.5-5.0 ALKALINE PHOSPHATASE 45 U/L 40-150 AST 42 U/L H 5-34 ALT 32 U/L BILIRUBIN, TOTAL 0.7 mg/dL 0.2-1.2 April 10, 2024 11:07 AM [facility] CBC AND DIFF (AUTO) Specimen Type: BLOOD No comment entered. Ordering Provider: CLYDE TORO Report Released Date/Time: April 10, 2024 10:54 AM Reporting Lab: [address] [address] Performing Lab: [facility] [address] [facility] [address] WBC 6.15 10*3/uL 4.50-11.00 RBC 4.50 10*6/uL 4.23-5.66 HGB 15.2 g/dL 12.8-17 HCT 44.2 39.2-50.4 MCV 98.2 fL 82-99 MCHC 34.4 g/dL 30.8-35.1 PLT 196 10*3/uL 140-360 RDW-CV 12.7 12.0-16.0 Upson, Abs 0.55 10*3/uL 0.30-1.10 MCH 33.8 pg H 26.2-32.6 Neut % 53.4 43.7-75.8 Lymph % 35.9 14.0-42.3 Upson % 8.9 5.1-13.7 Eos % 0.8 0.4-6.8 Baso % 0.5 0.1-2.0 Neut, Abs 3.28 10*3/uL 2.20-7.60 Lymph, Abs 2.21 10*3/uL 1.00-3.20 Eos, Abs 0.05 10*3/uL 0.03-0.44 Baso, Abs 0.03 10*3/uL 0.01-0.13 Immature Gran % 0.5 0.0-0.7 Immature Gran, Abs 0.03 10*3/uL 0.00-0.06 April 10, 2024 11:07 AM [facility] HEMOGLOBIN A1C PANEL Specimen Type: BLOOD [...] April 10, 2024 10:54 AM Reporting Lab: [facility] [address] [facility] [address] Performing Lab: [address] [address] HEMOGLOBIN A1C 6.0 H 4.0-5.6 April 10, 2024 11:07 AM [facility] TSH Specimen Type: SERUM No comment entered. Ordering Provider: CLYDE TORO Report Released Date/Time: April 10, 2024 10:54 AM Reporting Lab: [facility] [address] [facility] [address] Performing Lab: [address] [address] TSH 1.06 u[IU]/mL 0.35-5.00 Social History: Smoking Status (Most current) and Tobacco Use (All prior to encounter date) This section includes the most current, and the historical, smoking and tobacco- related health factors from the [place] facility where the Encounter took place. Current Smoking Status This section includes the most current smoking, or tobacco-related health factor, from the [place] facility where the Encounter took place. Date/Time Current Smoking Status Comment Facil ity Mar 03, 2024 02:37 PM VA-TOBACCO USE 1 T O < [address] Tobacco Use History This section includes a history of the smoking, or tobacco-related health factors, that were collected on or before the date of the Encounter. The data comes from the CT facility where the Encounter took place. Date/Time Smoking Status/Tobacco Use Comment F acility Mar 03, 2024 02:37 PM VA-TOBACCO USE 1 TO < [address] [facility] [place] 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 Mar 03, 2024 02:37 PM VA-TOBACCO USE MED NO [facility] [place] [facility] Mar 03, 2024 02:37 PM VA-TOBACCO USER SOME DAYS CT [facility] [place] [facility] Encounter Notes: All associated encounter notes This section contains the clinical notes associated to the Encounter. Date/Time Encounter Note(s) Provider Source Apr 24, 2024 03:57 PM MENTAL HEALTH CONS ULT: LOCAL TITLE: MENTAL HEALTH CONSULT NOTE STANDARD TITLE: MENTAL HEALTH CONSULT DATE OF NOTE: APR 24, 2024@15:57:14 ENTRY DATE: APR 24, 2024@15:57:14 AUTHOR: MAYI FORBES EXP COSIGNER: URGENCY: STATUS: COMPLETED [place] Suicide Severity Rating Scale (C-SSRS) Date Given: 04/24/2024 [place]ician: [place]i [place] [facility] [place] Kelsey French SSN: [id number] : [birth year]) Gender: Male Suicidal Ideation in Past Month: None endorsed Method/Plan/Intent in Past Month: No method, no specific plan, and no intent Suicidal Behavior: No Past Suicidal Behavior Reported OSEGUERA INDICATORS: Questions and Answers: 1. Over the past month, have you wished you were or wished you could go to sleep and not wake up? No 2. Over the past month, have you had any actual thoughts of killing yourself? No 3. Over the past month, have you been thinking about how you might do this? Not asked (due to responses to other questions) 4. Over the past month, have you had these thoughts and had some intention of acting on them? Not asked (due to responses to other questions) 5. Over the past month, have you started to work out or worked out the details of how to kill yourself? Not asked (due to responses to other questions) 6. If yes, at any time in the past month did you intend to carry out this plan? Not asked (due to responses to other questions) 7. In your lifetime, have you ever done anything, started to do anything, or prepared to do anything to end your life (for example, collected pills, obtained a gun, gave away valuables, went to the roof but didn't jump)? No 8. If yes, was this within the past 3 months? Not asked (due to responses to other questions) [place]-Suicide Severity Rating Scale (C-SSRS) ?? 2016 [facility]. Scale may be reproduced without permission. Information contained in this note is based on a self-report assessment and is not sufficient to use alone for diagnostic purposes. Assessment results should be verified for accuracy and used in conjunction with other diagnostic activities. /buddy/ PATEL Moyer [facility] Supervisor Gear Repair Signed: 04/25/2024 11:[address] [facility]
--- OUTSIDE RECORDS SUMMARY | 2024-12-06 08:28 | XMS_ITS ---
Author Name [facility] Address [address] [place] [address] Care Team Providers Care Warp Dresser Name Role Phone CLYDE TORO Primary Care Provider Unavailabl e Selected Encounter This section includes the information on record at [place] for the Encounter. Date/Time Encounter Type Encounter Description Reason Provider Source Oct 26, 2024 10:02 AM Outpatient Encounter EVENT (HISTORICAL) AGUSTINA RIOS [facility] Encounter Template Text not used by [place] Plan of Treatment: Future Appointments (+ 6 months) and Future Tests (+/- 45 days) The Plan of Treatment section includes future care activities for the patient from all [place] treatmentfacilities. This section includes future appointments and future orders which are active, pending or scheduled. Future Appointments This section includes appointments that were scheduled to occur 6 months from the date of the Encounter, up to a maximum of 20 appointments. The data comes from all [place] treatment facilities. Appointment Date/Time Appointment Type Appointme nt Facility Name Oct 30, 2024 03:00 PM [facility] Dec 04, 2024 03:00 PM [facility] [place] [facility] Dec 18, 2024 03:00 PM [facility] [place] [facility] April 17, 2025 09:30 AM [facility] Social History: Smoking Status (Most current) and Tobacco Use (All prior to encounter date) This section includes the most current, and the historical, smoking and tobacco- related health factors from the [facility] facility where the [facility]counter took place. Current Smoking Status This section includes the most current smoking, or tobacco-related health factor, from the [facility] facility where the Encounter took place. Date/Time Current Smoking Status Comment Hernandez ity Mar 03, 2024 02:37 PM VA-TOBACCO USE 1 T O < 5 YEARS [facility] Tobacco Use History This section includes a history of the smoking, or tobacco-related health factors, that were collected on or before the date of the Encounter. The data comes from the [place] facility where the Encounter took place. 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 Date/Time Encounter Note(s) Provider Source Oct 26, 2024 10:02 AM SECURE MESSAGING: LOCAL TITLE: TELEHEALTH SECURE MESSAGING STANDARD TITLE: SECURE MESSAGING DATE OF NOTE: OCT 26, 2024@10:02 ENTRY DATE: OCT 26, 2024@10:02:43 AUTHOR: AGUSTINA RIOS EXP COSIGNER: URGENCY: STATUS: COMPLETED ------Original Message -------- Sent: 10/26/2024 10:02 AM ET From: AGUSTINA RIOS To: KELSEY FRENCH Subject: General:Video Visit test call Dr. Gillian Nagel asked us to reach out to you and try a test call before your next video visit with her. Please email or call us back to set up a time. Thank you, Agustina Rios ) /buddy/ AGUSTINA RIOS TELEHEALTH CLINICAL SEAM STAY STITCHER Signed: 10/26/2024 10:02 AGUSTINA RIOS [facility]
--- OUTSIDE RECORDS SUMMARY | 2024-12-06 08:28 | XMS_ITS | Encounter Summary ---
Author Name [facility] [place] [facility] Address [address] [place] [id number] Care Team Providers Care Decontamination Technician Name Role Phone CLYDE TORO Primary Care Provider Unavailabl e Selected Encounter This section includes the information on record at [place] for the Encounter. Date/Time Encounter Type Encounter Description Reason Provider Source Oct 30, 2024 03:00 PM PSYTX W PT 45 MINUTES [facility] - IND ICD-10-CM F41.9 Anxiety disorder, unspecified KARINA HILTON Mirella Encounter Template Text not used by [place] Assessments - Encounter Diagnoses This section includes the primary and secondary diagnoses documented for the Encounter. Date/Time Primary/Secondary Diagnosis Diagnosis Name Provider Source Nov 02, 2024 07:27 PM PRIMARY Anxiety disorder, unspecified K[facility]INA [facility]ILTON [facility] Plan of Treatment: Future Appointments (+ 6 months) and Future Tests (+/- 45 days) The Plan of Treatment section includes future care activities for the patient from all [place] treatmentfacilities. This section includes future appointments and future orders which are active, pending or scheduled. Future Appointments This section includes appointments that were scheduled to occur 6 months from the date of the Encounter, up to a maximum of 20 appointments. The data comes from all [place] treatment facilities. Appointment Date/Time Appointment Type Appointme nt Facility Name Dec 04, 2024 03:00 PM AMBULATORY [facility] Dec 18, 2024 03[facility]00 PM [facility] April 17, 2025 09:30 AM AMBULATORY - MEDICINE [facility] Social History: Smoking Status (Most current) and Tobacco Use (All prior to encounter date) This section includes the most current, and the historical, smoking and tobacco- related health factors from the [place] facility where the Encounter took place. Current Smoking Status This section includes the most current smoking, or tobacco-related health factor, from the [place] facility where the Encounter took place. Date/Time Current Smoking Status Comment Facil ity Mar 03, 2024 02:37 PM VA-TOBACCO USE 1 T O < 5 YEARS [place] [facility] Tobacco Use History This section includes a history of the smoking, or tobacco-related health factors, that were collected on or before the date of the Encounter. The data comes from the [place] facility where the Encounter took place. Date/Time Smoking Status/Tobacco Use Comment F acility Mar 03, 2024 02:37 PM VA-TOBACCO USE 1 TO < 5 YEARS [place] [facility] [place] [facility] Mar 03, 2024 02:37 PM VA-TOBACCO USE ADVICE [facility] [place] [facility] Mar 03, 2024 02:37 PM VA-TOBACCO USE MANAGER RETAIL NO [place] [facility] [place] [facility] Mar 03, 2024 02:37 PM VA-TOBACCO USE MED NO [place] [facility] [place] [facility] Mar 03, 2024 02:37 PM VA-TOBACCO USER SOME DAYS [place] [facility] [place] [facility] Encounter Notes: All associated encounter notes This section contains the clinical notes associated to the Encounter. Date/Time Encounter Note(s) Provider Source Oct 30, 2024 03:23 PM MENTAL HEALTH DIAG NOSTIC STUDY NOTE: LOCAL TITLE: MENTAL HEALTH DIAGNOSTIC STUDY STANDARD TITLE: MENTAL HEALTH DIAGNOSTIC STUDY NOTE DATE OF NOTE: OCT 30, 2024@15:23:08 ENTRY DATE: OCT 30, 2024@15:23:08 AUTHOR: KARINA HILTON EXP COSIGNER: URGENCY: STATUS: COMPLETED These assessments were completed by KELSEY FRENCH via provider direct entry on 10/30/2024 3:21:51 PM. GENERAL ANXIETY DISORDER-7 (KASIA-7) Patient reported being bothered by the following over the last two weeks: 1. Feeling nervous, anxious or on edge: More than half the days 2. Not being able to stop or control worrying: More than half the days 3. Worrying too much about different things: More than half the days 4. Trouble relaxing: Several days 5. Feeling restless (hard to sit still): Several days 6. Becoming easily annoyed or irritable: Several days 7. Afraid as if something awful might happen: Not at all KASIA-7 total score = 9 0-4=minimal symptoms 5-9=mild symptoms 10-14=moderate symptoms 15-21=severe symptoms The patient stated that the anxiety symptoms made it not at all difficult to work, take care of things at home, or get along with others. /buddy/ KARINA HILTON, Ph.D Clinical Psychologist Signed: 10/30/2024 19:42 KARINA HILTON [place] [facility] [place] [facility] Oct 30, 2024 02:43 PM TELEHEALTH NOTE: LOCAL TITLE: [place] Citizen.VC PSYCHOLOGY NOTE STANDARD TITLE: TELEHEALTH NOTE DATE OF NOTE: OCT 30, 2024@14:43 ENTRY DATE: OCT 30, 2024@14:43:11 AUTHOR: KARINA HILTON EXP COSIGNER: URGENCY: STATUS: COMPLETED coUrbanize (VVC) Standard Documentation VVC Clinician Resources Only: E911 (Emergency Call Relay Center): [phone] [facility] Crisis Line - 9[address] then press #[address] [facility] Suicide Coordinator ? [phone], Ext. [phone]; Back-up Ext. 3501 [place] Police, [place] ? [phone] Introduction: Visit is being conducted by coUrbanize. identified with 2 identifiers: [X] Full Name [ ] Date of [X] Address [X] Visual Recognition Emergency Plan: [place] confirmed and/or provided the following information in case of emergency or technology failure. PATIENT PHONE - PHONE NUMBER [CELLULAR] - Is patient phone number correct, if not, enter below: 's phone number: KELSEY FRENCH [address] [place] [address] [address] [place], [place], [address] [place]'s present location and address for appointment: [address] [place] [address] [place] [address] 's emergency contact name and phone number: Geneiveve French () [place] reported that location is private and safe: Yes Informed Consent: [place] informed of the risks and benefits of Telehealth video care. has the right to refuse video services. If refuses video visit, a [id number]-vg-[id number] visit will be scheduled. verbalized consent for this video visit: Yes provided consent for any other persons present for visit: N/A If yes, who and relationship to patient: Secure visit: Visit was locked for security and privacy: Yes INFORMED CONSENT: Reviewed rights and limits of confidentiality, mandatory reporting situations, duty to warn and protect, Biggs Warning, (if treatment team finds patient to be an acute danger to himself or others, that this information could be relayed to a court of law and presented to a vp of digital marketing), and [facility] access for active-duty service members. Session Duration: 45 Minutes DIAGNOSIS: Adjustment Disorder with mixed Anxiety and depressed mood(ICD-10-CM F43.23) VETERANS STATEMENT OF GOALS/CONCERNS: Decrease anxiety around work-related issues, and stress management. Consider trauma-focused work to reduce symptoms, following treatment for work-related anxiety. SESSION FOCUS: Session began with completion and review of the KASIA-7 (Score: 9), indicating mild symptoms. 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 [place] initially shared that he worries if he doesn't make goal, he will lose his job, however, he corrected himself and stated that he recognized this would not happen for a number of reasons. Arpita shared that he had been laid off in the past but was rehired almost immediately. In addition, Arpita shared that he has been in the field for 36 years (starting at age 26), and has been with the current company for 26 years. Discussed that Arpita must be a valued employee, has a positive track record, and that the probability of him being fired is low. 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 Arpita stated that even given his self-assured/positive thoughts, and having a plan for the near future, he continues to worry about the job and making goal, most of the time. He shared that he recently found out his End of Year numbers look good and while he had a brief sigh of relief, he began to immediately worry about next year. Revisited brief discussion regarding CBT for treatment of anxiety and agreed it would be helpful. Revisited Measurement Based Care and how measures can impact recommendations to enhance care including individual therapy and how they can impact decisions to decrease level of care. Also discussed details regarding Episodic Care, and answered 's questions. INTERVENTIONS: CBT for anxiety. RISK ASSESSMENT: [place] denied current S/I PLAN: NEXT SCHEDULED APPOINTMENT: 11/06/24 at 10:00 /buddy/ KARINA HILTON, Ph.D Clinical Psychologist Signed: 11/02/2024 19:27 KARINA HILTON [facility]
--- OUTSIDE RECORDS SUMMARY | 2024-12-06 08:28 | XMS_ITS | Encounter Summary ---
Author Name [facility] [place] Organization [facility] Address [address] [place] [address] Care Team Providers Care Sales Special Agent Name Role Phone CLYDE TORO Primary Care Provider Unavailabl e Selected Encounter This section includes the information on record at [place] for the Encounter. Date/Time Encounter Type Encounter Description Reason Provider Source Oct 23, 2024 03:00 PM PSYTX W PT 45 MINUTES TELEPHONE ICD-10-CM F43.9 Reaction to severe stress, unspecified TORMEKARINA Sellers IHMirella Encounter Template Text not used by [place] Assessments - Encounter Diagnoses This section includes the primary and secondary diagnoses documented for the Encounter. Date/Time Primary/Secondary Diagnosis Diagnosis Name Provider Source Oct 23, 2024 03:00 PM PRIMARY Reaction to severe stress, unspecified TORKARINA CHRISTIAN [facility] Plan of Treatment: Future Appointments (+ 6 months) and Future Tests (+/- 45 days) The Plan of Treatment section includes future care activities for the patient from all [place] treatmentfacilities. This section includes future appointments and future orders which are active, pending or scheduled. Future Appointments This section includes appointments that were scheduled to occur 6 months from the date of the Encounter, up to a maximum of 20 appointments. The data comes from all [place] treatment facilities. Appointment Date/Time Appointment Type Appointme nt Facility Name Oct 30, 2024 03:00 PM [facility] Dec 04, 2024 03:00 PM [facility] Dec 18, 2024 03:00 PM [facility] April 17, 2025 09:30 AM AMBULAT[facility] MEDICINE [facility] [place] [facility] Social History: Smoking Status (Most current) and Tobacco Use (All prior to encounter date) This section includes the most current, and the historical, smoking and tobacco- related health factors from the [place] facility where the Encounter took place. Current Smoking Status This section includes the most current smoking, or tobacco-related health factor, from the [place] facility where the Encounter took place. Date/Time Current Smoking Status Comment Facil ity Mar 03, 2024 02:37 PM VA-TOBACCO USE 1 T O < 5 YEARS [place] [facility] [place] [facility] Tobacco Use History This section includes a history of the smoking, or tobacco-related health factors, that were collected on or before the date of the Encounter. The data comes from the [place] facility where the Encounter took place. 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 Date/Time Encounter Note(s) Provider Source Oct 24, 2024 12:47 PM PSYCHOLOGY CONSULT : LOCAL TITLE: CONSULT REPORT/MENTAL HEALTH/PSYCHOLOGY STANDARD TITLE: PSYCHOLOGY CONSULT DATE OF NOTE: OCT 24, 2024@12:47 ENTRY DATE: OCT 24, 2024@12:47:59 AUTHOR: KARINA HILTON EXP COSIGNER: URGENCY: STATUS: COMPLETED CONSULT REPORT/MENTAL HEALTH/PSYCHOLOGY Has ADDENDA [facility] Video Connect (VVC) Standard Documentation VVC Clinician Resources Only: E911 (Emergency Call Relay Center): [phone] [facility] Crisis Line - 798 then press #1. [facility] Suicide Coordinator ? [phone], Ext. [phone]; Back-up Ext. 2002 [place] , [place] ? [phone] Introduction: Visit is being conducted by [place] Video Connect. identified with 2 identifiers: [X] Full Name [ ] Date of [X] Address Emergency Plan: [place] confirmed and/or provided the following information in case of emergency or technology failure. PATIENT PHONE - PHONE NUMBER [CELLULAR] - Is patient phone number correct, if not, enter below: [place]'s phone number: KELSEY KARIS GILLIAN [address] [place] [address] [address] [place], [place], [address] 's present location and address for appointment: [address] [place] [address] [place] [address] 's emergency contact name and phone number: Genevieve Maldonado () reported that location is private and safe: Yes Informed Consent: [place] informed of the risks and benefits of Telehealth video care. [place] has the right to refuse video services. If refuses video visit, a [id number]-[id number] visit will be scheduled. 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 Session Duration: 45 Minutes DIAGNOSIS: Adjustment Disorder with mixed Anxiety and depressed mood(ICD-10-CM F43.23) VETERANS STATEMENT OF GOALS/CONCERNS: Decrease anxiety around work-related issues, stress management, and trauma-focused work to reduce symptoms. SESSION FOCUS: Session began with completion of the C-SSRS This was [place]'s initial session. Arpita reported that his current occupation is his main source of stress and anxiety. 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 Arpita shared that making goal is the most stressful part of the job as he is expected to produce. Arpita shared that he has been with the [employer] for 36 years as he started directly following college and that he constantly worries about the job , however, his stress levels tend to be higher during spring and early fall due to fluctuating demands for the [employer]. Arpita shared that his symptoms include, sleepless nights, nightmares , and anxiety. 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 Discussed Measurement Based Care and how measures can impact recommendations to enhance care including individual therapy and how they can impact decisions to decrease level of care. Also discussed details regarding Episodic Care, and answered [place]'s questions. INTERVENTIONS: Briefly discussed CBT for anxiety. Will revisit next session. RISK ASSESSMENT: denied current S/I PLAN: NEXT SCHEDULED APPOINTMENT: 11/02/24 at 10:00 Completed C-SSRS: Suicide Screen: C-SSRS Screening [place]-Suicide Severity Rating Scale (C-SSRS Screener) 1. Over the past month, have you [...] required due to responses to other questions. /buddy/ KARINA HILTON, Ph.D Clinical Psychologist Signed: 10/26/2024 19:17 10/26/2024 ADDENDUM STATUS: COMPLETED [place] gave his consent to send assessments to his E-mail address via [facility]. /bhakti HILTON, Ph.D Clinical Psychologist Signed: 10/26/2024 19:20 KARINA HILTON [place] [facility]
[2024-12-06 09:54] LABS: MANUAL DIFF FLAG NO
[2024-12-06 10:02] LABS: Basophils Percent Auto 0.2 % (0-2); Eosinophils Percent Auto 0.4 % (0-4); Hematocrit 42.9 % (42.0-52.0); Hemoglobin 15.1 g/dl (14.0-18.0); Imm Gran Pct Auto 0.4 % (0.0-0.4); Lymphocytes Percent Auto 16.8 % (20-40); Mean Corpuscular HGB Conc 35.2 g/dl (31.0-36.0); Mean Corpuscular Hemoglobin 33.6 pg (27.0-33.0); Mean Corpuscular Volume 95.3 fL (80.0-98.0); Mean Platelet Volume 9.7 fL (9.4-12.4); Monocytes Percent Auto 5.6 % (2-11); Neutrophils Percent Auto 76.6 % (45-73); Platelet Count 232 X10*3/uL (160-400); Red Cell Distribution Width 12.6 % (11.0-16.0); White Blood Count 11.2 X10*3/uL (4.8-10.8)
[2024-12-06 10:03] LABS: Imm Gran Abs Auto 0.04 X10*3/uL (0.00-0.03); Lymphocytes Absolute Auto 1.9 X10*3/uL (1.2-4.9); Monocytes Absolute Auto 0.6 X10*3/uL (0.1-1.2); Neutrophils Absolute Auto 8.6 x10*3/uL (2.0-8.3)
[2024-12-06 10:05] LABS: Appearance Urine Clear; Color Urine Yellow; Glucose Urine UA Negative (Negative); Leukocyte Esterase Urine Negative (Negative); Nitrite Urine Negative (Negative); PH 5.5 (5.0-9.0); Specific Gravity - Urine >= 1.030 (1.005-1.025); Urine Blood Negative (Negative); Urine Ketones 15 mg/dL (Negative); Urine Protein Negative (Neg-Trace)
[2024-12-06 10:21] LABS: Alanine Aminotransferase 34 U/L (0-40); Albumin Level 4.4 g/dL (3.5-5.0); Anion Gap 14 (12-20); Aspartate Amino Transferase 42 U/L (5-37); Blood Urea Nitrogen 20 mg/dL (9-16); Calcium 9.4 mg/dL (8.4-10.2); Carbon Dioxide 23 mmol/L (22-29); Chloride 105 mmol/L (96-108); Cholesterol 166 mg/dL (<200); Estimated Glomerular Filt Rate > 60; Glucose Fasting 126 mg/dL (60-99); HDL Cholesterol 35 mg/dL (>40); LDL Cholesterol Calculated 112 mg/dL (<100); Potassium 4.4 mmol/L (3.3-5.1); Sodium 138 mmol/L (135-145); Total Protein 7.7 g/dL (6.5-8.0); Triglycerides 96 mg/dL (<150)
[2024-12-06 10:34] LABS: Prostate Specific Antigen Scr 0.67 ng/mL (<0.05-4.0)
[2024-12-06 10:35] LABS: Alkaline Phosphatase 52 U/L (39-117)
[2024-12-06 10:50] LABS: TSH reflex Free T4 0.97 uIU/mL (0.32-4.0)
== END 2024-12-06 08:20 | disposition home or self-care (01) ==
LOC: HO.HMGCLDS 08:19
PROVIDERS: PCP Nurse Practitioner Family; Visit Provider Nurse Practitioner Family
DX: Z00.00 Encounter for general adult medical examination without abnormal findings (principal); Z12.5 Encounter for screening for malignant neoplasm of prostate
CPT/HCPCS: 36415; 80053; 80061; 81003; 84153; 84443; 85025

== ENCOUNTER 2024-12-29 10:27 | Outpatient (REF) | payer BC, SELFPAY | END 2024-12-29 10:28 | disposition home or self-care (01) | LOC: HO.US 10:27 | PROVIDERS: PCP Nurse Practitioner Family; Visit Provider Nurse Practitioner Family | DX: R74.8 Abnormal levels of other serum enzymes (principal) ==

== ENCOUNTER → 2024-12-29 10:29 | Outpatient (BNV) | payer BC, SELFPAY | PROVIDERS: PCP Nurse Practitioner Family; Visit Provider Specialist | DX: R74.8 Abnormal levels of other serum enzymes (principal) | CPT/HCPCS: 76700 ==

== ENCOUNTER 2025-09-05 12:24 | Day surgery (SDC) | payer OTHER, SELFPAY ==
[2025-08-31 10:54] VITALS: BMI 32.6
[2025-09-04 10:04] VITALS: BMI 30.3
--- OUTSIDE RECORDS SUMMARY | 2025-09-04 10:52 | XMS_ITS | Encounter Summary ---
Author Organization [facility] Address [address] [place] [address] [place] [address] Phone Care Team Providers Care Sales Order Specialist Name Role Phone Daniel Jarvis DO Primary Care Provider [phone] Tor Amaya NP Primary Care Provider + Encounter Details Date Type Department Care Team (Late st Contact Info) Description 06/21/2018 Procedure Pass [facility],Outside Imaging [address] [place], [place] [id number] Social History Tobacco Use Types Packs/Day Years Used Date Smoking Tobacco: Never Assessed Sex and Gender Information Value Date Recorded Sex Assigned at Not on file Legal Sex Male 11:33 AM EDT Gender Identity Not on file Sexual Orientation Not on file documented as of this encounter Plan of Treatment Not on file documented as of this encounter Visit Diagnoses Not on filedocumented in this encounter Care Teams Sales Order Specialist Relationship Specialty Start Date End Date Daniel Jarvis DO [address] [place] [address] PCP - General Internal Medicine 06/06/18 10/30/18 Tor Amaya NP [facility] [place] [address] PCP - General Family Medicine 10/31/18 documented as of this encounter Additional Source Comments The information contained in this document represents components of the legal health record. It is not the complete legal health record.[facility]
--- OUTSIDE RECORDS SUMMARY | 2025-09-04 10:52 | XMS_ITS | Clinical Summary ---
Author Organization [facility] Address [address] [place] [address] Phone Care Team Providers Care Relocation Coordinator Name Role Phone Tor Amaya NP Primary Care Provider + Allergies Active Allergy Reactions Criticality Noted Date Comments Shellfish Containing Products Itching 2017 Itchy throat Medications montelukast (SINGULAIR) 10 mg tablet Take 10 mg by mouth nightly. Active atorvastatin (LIPITOR) 10 MG tablet Take 10 mg by mouth daily. Active ibuprofen (ADVIL,MOTRIN) 600 MG tablet Take 600 mg by mouth every 6 (six) hours as needed for pain (specific location in comments). Active rivaroxaban (XARELTO) 20 mg Tab Take 20 mg by mouth daily. Active lisinopril (PRINIVIL,ZESTR IL) 10 MG tablet Take 10 mg by mouth daily. Active Social History Tobacco Use Types Packs/Day Years Used Date Smoking Tobacco: Former Smokeless Tobacco: Never Comments:smoked socially yrs ago Alcohol Use Standard Drinks/Week Comments Yes 0 (1 standard drink = 0.6 oz pur e alcohol) socially Education Answer Date Recorded Are you interested in more education? Not on danette e 03/19/2023 Are you concerned about learning? Not on file 03/19/2023 No 03/19/2023 No 03/19/2023 Digital Access Answer Date Recorded No 04/17/2023 No 04/17/2023 No 04/17/2023 Reliable internet access at home? Not on file 04/17/2023 Device with a working camera? Not on file Sex and Gender Information Value Date Recorded Sex Assigned at Not on file Legal Sex Male 11:33 AM EDT Gender Identity Not on file Sexual Orientation Not on file Last Filed Vital Signs Vital Sign Reading Time Taken Comments Blood Pressure - - Pulse - - Temperature - - Respiratory Rate - - Oxygen Saturation - - Inhaled Oxygen Concentration - - Weight 120.2 kg (265 lb) 10/31/2018 9:04 AM EST Height 185.4 cm (6' 0.99 ) 10/31/2018 9:04 AM ES T Body Mass Index 34.97 10/31/2018 9:04 AM EST Plan of Treatment Health Maintenance Due Date Last Done Comments Adult Td,Tdap Booster 1965 CREATININE LEVEL 1965 LIPID PANEL 1965 POTASSIUM LEVEL 1965 DEPRESSION SCREENING 1977 SMOKING Hx and SMOKELESS TOB ACCO SCREENING 1978 HEPATITIS C SCREENING 1983 HIV ONE-TIME SCREENING (18-6 5 YEARS) 1983 COLOGUARD 2010 COLONOSCOPY 2010 COLORECTAL CANCER SCREENING 2010 FIT TEST 2010 FOBT 2010 SIGMOIDOSCOPY 2010 VIRTUAL COLONOSCOPY 2010 PNEUMOCOCCAL VACCINES (50+ y ears) (1 of 1 - PCV) 2015 ZOSTER VACCINES (1 of 2) 2015 INFLUENZA VACCINE (#1) 2025 COVID-19 VACCINE (1 - 2024-2 6 season) 2025 RSV VACCINE (1 - 1-dose 75+ series) 2040 HEPATITIS A VACCINES Aged Out No long er eligible based on patient's age to complete this topic HIB VACCINES Aged Out No longer eligi ble based on patient's age to complete this topic MENINGOCOCCAL VACCINES (ACWY) Aged Out No longer eligible based on patient's age to complete this topic MENINGOCOCCAL VACCINES (B) Aged Out N o longer eligible based on patient's age to complete this topic Medical Devices [place] [address] [facility] [address] [facility] [address] [facility] [address] [facility] [address] [facility] [place] [address] [facility] [place] [address] [facility] [address] [facility] [place] [address] [facility] Care Teams Relocation Coordinator Relationship Specialty Start Date End Date Tor Amaya NP [address] [facility] [place] [address] PCP - General Family Medicine 10/31/18 Additional Source Comments The information contained in this document represents components of the legal health record. It is not the complete legal health record.[facility]
--- OUTSIDE RECORDS SUMMARY | 2025-09-04 10:52 | XMS_ITS | Patient Health Record ---
Author Organization [facility] Address [address] [place] [address] Care Team Providers Care Physical Scientist Name Role Phone Hollie Richard N.P Primary Care Provider Unavail able Aiden Blount Jr Unavailable Allergies No Known Allergies Reason For Referral Referring Provider First Name Hollie Referring Provider Last Name Jose Manuel Referred Organization [facility] Referred Provider Aiden Blount Jr Referred Address [address] [facility],[place],[address], Referred Provider Specialty Gastroentero logy Referral Priority Routine Medications Medication SIG (Take, Route, Frequency, Duration) Notes Start Date End Date Status Atorvastatin Calcium 10 MG 1 tablet Oral ly Once a day Active Xarelto 20 MG 1 tablet with food O rally Once a day Active Singulair 10 MG 1 tablet Orally Once a day Active Lisinopril 40 MG 1 tablet Orally Once a day Active Ozempic (2 MG/DOSE) Active Immunizations Vaccine Route Administration Date Status Comme nts Influenza Unknown 08/16/2024 Administered Social History Tobacco Use: Social History Observation Description Date Details (start date - stop date) Never Smoker NA - NA Tobacco Control (Standard) Question Answer Notes Tobacco use: Nonsmoker AUDIT-C (Standard) Question Answer Notes Did you have a drink contain ing alcohol in the past year? Yes How often did you have a dri nk containing alcohol in the past year? 2 to 4 times a month (2 points) How many drinks did you have on a typical day when you were drinking in the past year? 1 or 2 drinks (0 point) How often did you have six o r more drinks on one occasion in the past year? Never (0 point) Points 2 Interpretation Negative Problems Problem Type SNOMED Code ICD Code Onset Dates Problem Status W/U Status Risk Notes Problem Colon cancer screening (735873899) Colon cancer screening (Z12.11) Active confirmed Problem Pre-procedure evaluation check (503003375) Encounter for other preprocedural examination (Z01.818) Active confirmed Problem Long-term current use of anticoagulant (991597126) Anticoagulant long-term use (Z79.01) Active confirmed Vital Signs Temperature 97.7 degrees Fahrenheit 08/16/2025 Blood pressure diastolic 01 mm Hg 08/16/2025 Height 73 in 08/16/2025 Blood pressure systolic 001 mm Hg 08/16/2025 Weight 247.4 lbs 08/16/2025 BMI 32.64 kg/m2 08/16/2025 Encounters Encounter Location Date Provider Diagnosis [facility] [address] [place] [address] 08/16/2025 Aiden Blount Jr Encounter for other preprocedural examination Z01.818 ; Colon cancer screening Z12.11 and Anticoagulant long-term use Z79.01 [facility] [address] [place] [address] 08/16/2025 Aiden Blount Jr Assessments Encounter Date Diagnosis (ICD Code) Assessment Notes Treatment Notes Treatment Clinical Notes Section Notes 08/16/2025 Colon cancer screening (ICD-10 - Z12.11) We discussed colonoscopy today. We discussed risks and benefits of the procedure today. He understands these and agrees to proceed. This will be scheduled at his convenience. He is advised to stop Xarelto 3 days before the procedure and Ozempic 1 week before the procedure. 08/16/2025 Encounter for other preprocedural examination (ICD-10 - Z01.818) We discussed colonoscopy today. We discussed risks and benefits of the procedure today. He understands these and agrees to proceed. This will be scheduled at his convenience. He is advised to stop Xarelto 3 days before the procedure and Ozempic 1 week before the procedure. 08/16/2025 Anticoagulant long-term use (ICD-10 - Z79.01) We discussed colonoscopy today. We discussed risks and benefits of the procedure today. He understands these and agrees to proceed. This will be scheduled at his convenience. He is advised to stop Xarelto 3 days before the procedure and Ozempic 1 week before the procedure. Plan Of Treatment Future Test Test Name Order Date COLONOSCOPY 08/16/2025 Next Appt Details Provider Name:Aiden Libra Palacio martin Jr, 09/05/2025 01:50:00 PM, [address] [place] [address], [phone], Insurance Providers Payer Name Payer Address Payer Phone Subscriber Number Group Number Insured Name Patient Relationship to Insured Coverage Start Date Coverage End Date [facility] [employer] 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
--- OUTSIDE RECORDS SUMMARY | 2025-09-04 10:52 | XMS_ITS | Encounter Summary ---
Author Organization [facility] Address [address] [place] [address] [place] [phone] Phone Care Team Providers Care Nurse Tech Name Role Phone Daniel Jarvis DO Primary Care Provider [phone]- [phone] Tor Amaya NP Primary Care Provider + Reason for Referral * MRI/CAT Scan - Closed Specialty Diagnoses / Procedures Referred By Contac t Referred To Contact Procedures MRI Lower Extremity Outside (No Interpretation) System, Provider Not In, PhD [facility] [employer] [address] Referral ID Status Reason Start Date Expiration Date Visits Re quested Visits Authorized [id number] Closed 06/21/2018 06/21/2019 1 1 Encounter Details Date Type Department Care Team (Late st Contact Info) Description 06/21/2018 Ancillary Orders [facility],Outside Imaging [address] [place] [address] System, Provider Not In, PhD [employer] [address] Social History Tobacco Use Types Packs/Day Years Used Date Smoking Tobacco: Former Smokeless Tobacco: Never Comments:smoked socially yrs ago Alcohol Use Standard Drinks/Week Comments Yes 0 (1 standard drink = 0.6 oz pur e alcohol) socially Sex and Gender Information Value Date Recorded Sex Assigned at Not on file Legal Sex Male 11:33 AM EDT Gender Identity Not on file Sexual Orientation Not on file documented as of this encounter Plan of Treatment Not on file documented as of this encounter Results * MRI Lower Extremity Outside (No Interpretation) (06/04/2018 12:00 AM EDT) Narrative SYSTEMGENERATED, DOCUMENTATION - 06/21/2018 9:48 AM EDT This study is for PACS storage only and not for interpretation. us Provider Not In System PhD IMG OUTSIDE IMAGING W /OUT INTERPRETATION Final Result documented in this encounter Visit Diagnoses Not on filedocumented in this encounter Care Teams Nurse Tech Relationship Specialty Start Date End Date Daniel Jarvis DO [address] [place] [address] PCP - General Internal Medicine 06/06/18 10/30/18 Tor Amaya NP [facility] [facility] [place] [address] PCP - General Family Medicine 10/31/18 documented as of this encounter Additional Source Comments The information contained in this document represents components of the legal health record. It is not the complete legal health record.[facility]
--- OUTSIDE RECORDS SUMMARY | 2025-09-04 10:52 | XMS_ITS | Encounter Summary ---
Author Organization [facility] Address [address] [place] [address] [place] [address] Phone Care Team Providers Care Land Inspector Name Role Phone Daniel Jarvis DO Primary Care Provider [phone]- [phone] Tor Amaya NP Primary Care Provider + Encounter Details Date Type Department Care Team (Late st Contact Info) Description 06/30/2018 Procedure Pass OR Admitting Dept - Virtual Department [address] [place] [address] Social History Tobacco Use Types Packs/Day Years [...] on filedocumented in this encounter Care Teams Land Inspector Relationship Specialty Start Date End Date Daniel Jarvis DO [address] [facility] [place] [address] PCP - General Internal Medicine 06/06/18 10/30/18 Tor Amaya, JANE [address] [facility] [place] [address] PCP - General Family Medicine 10/31/18 documented as of this encounter Additional Source Comments The information contained in this document represents components of the legal health record. It is not the complete legal health record.[facility]
--- NOTE | 2025-09-04 13:12 | P.CONAN_ITS ---
Documented by User: Neha Londono NP 09/04/25 13:13 HPI - Anesthesia Eval Consult details Narrative: 60 yr old male for colonoscopy Asthma JEREMY H/O DVT, Factor V Leiden: on Xarelto Anesthesia Pre-Procedure Meds Is the patient on any of the following meds?: GLP1/DPP4 PMFSH Active Problems Active Problems: All Active Problems (Updated 08/31/25 @ 10:51 by Vicky Garvey, RN) Erectile dysfunction (Acute) Fatty liver (Acute) Elevated liver enzymes (Acute) Screening for colon cancer (Acute) Thoracic back pain (Acute) Diabetes (Acute) Newly diagnosed diabetes (Acute) Anxiety (Acute) Screening PSA (prostate specific antigen) (Acute) Tear of medial meniscus of right knee (Acute) Internal derangement of left knee (Acute) Physical exam (Acute) Encounter for screening fecal occult blood testing (Acute) COVID-19 (Acute) Hypertension (Acute) Factor V Leiden (Acute) Pure hypercholesterolemia (Acute) Asthma (Acute) Sleep apnea (Acute) Past Medical History Medical History JEREMY (obstructive sleep apnea) History of DVT (deep vein thrombosis) Diabetes HTN (hypertension) Factor V Leiden Sleep apnea Surgical History Surgical History History of surgery Hx of colonoscopy (2019) Social History Social History Housing: House Are you a primary care team coordinator scheduler to a significant other at home: No Do you presently have visiting nurse or other home services: No Patient Tobacco Use Status: Former Tobacco user Tobacco use type: Cigarette Years Smoked: 20 years ago Smoked in Last 30 Days: No e-Cigarette/Vaping Use: Never Used Second Hand Smoke Exposure: No Use of substances other than those prescribed or required for medical reasons: No Are you DNR?: No Advance Directives: No (will bring dos) Advance Directives Information Provided: Yes Advance Directives on File: No Poor oral hygiene: No service: Yes Current occupational status: employed 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 Missing Documented by User: Jesse Laura MD 09/05/25 13:53 [facility] Past Medical History Medical History JEREMY (obstructive sleep apnea) History of DVT (deep vein thrombosis) Diabetes HTN (hypertension) Factor V Leiden Sleep apnea Family History Family history of problems with anesthesia: No Surgical History Surgical History History of surgery Hx of colonoscopy (2019) History of Problems with Anesthesia: No Social History Social History Housing: House Are you a primary care team coordinator scheduler to a significant other at home: No Do you presently have visiting nurse or other home services: No Patient Tobacco Use Status: Former Tobacco user Tobacco use type: Cigarette Years Smoked: 20 years ago Smoked in Last 30 Days: No e-Cigarette/Vaping Use: Never Used Second Hand Smoke Exposure: No Use of substances other than those prescribed or required for medical reasons: No Are you DNR?: No Advance Directives: No (will bring dos) Advance Directives Information Provided: Yes Advance Directives on File: No Poor oral hygiene: No service: Yes Current occupational status: employed 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 Missing Heart: rrr Lungs: ctab vesicular Assessment and Plan Assessment Anesthesia Assessment: Anesthesia Plan Discussed, Smoking Cess. Discussed and Chart Reviewed Final Anesthetic Review Family History of Problems with Anesthesia: No History of Problems with Anesthesia: No NPO: Yes ASA Class: III Final Preanesthetic Review: No Changes in Pt Med Stat, Meds/Allgs Chart Reviewed, Consent Obtained/Reviewed and Anes Risks/Benef Reviewed Patient Risk: Low Procedure Risk: Low Anesthetic Plan Anesthetic Plan: MAC: Disposition: Standard PACU
[2025-09-05 12:51] VITALS: BMI 31.7
[2025-09-05 12:53] VITALS: BP 130/80; PULSE 72; RESP 16; TEMP 35.7; O2SAT 97
[2025-09-05] MEDS: Lactated Ringers 1,000 ML 100 ML IVCONT (13:06)
[2025-09-05 13:32] LABS: Glucose, Whole Blood 86 mg/dL (60-115)
[2025-09-05 14:06] VITALS: PULSE 66; RESP 16; O2SAT 94
[2025-09-05] MEDS: Albuterol Sulfate (0.083%) 2.5 MG/3 ML VIAL.NEB INHALE (14:06)
--- NOTE | 2025-09-05 14:37 | MHC.SHP ---
Pre-Procedural Eval Section A - 24 Hr Update-Section A only Date of Service: 09/05/25 The patient is an INPATIENT: No Changes since office visit: No Cold of Flu in the past 2 weeks, No New Medical Problems, No Changes in Medication and No Patient answered all questions The patient has been examined within 24 hours of the surgical procedure. The History & Physical has been completed within 30 days and I have reviewed it.: Yes Section B - Complete if H&P > 30 days Chief Complaint: screening Allergies: Allergies Allergy/AdvReac Type Severity Reaction Status Date / Time LOBSTER Allergy Mild ITCHING Uncoded 11/30/23 09:51 Plan I have reviewed the history and physical and performed a pertinent physical examination on my patient. No changes have occurred unless specified. Time Spent With Patient Time: Total time managing care of this patient today ____ minutes.
[2025-09-05 15:29] VITALS: BP 102/64; PULSE 81; RESP 12; TEMP 37.2; O2SAT 95
[2025-09-05 15:44] VITALS: BP 119/69; PULSE 77; RESP 18; TEMP 36.9; O2SAT 96
--- NOTE | 2025-09-06 02:08 | OP_ITS ---
DATE OF SERVICE: 09/05/2025 SURGEON: Aiden Blount MD INDICATIONS: Colon cancer screening and prior history of adenomatous colon polyps. PREOPERATIVE DIAGNOSIS: POSTOPERATIVE DIAGNOSIS: PROCEDURE PERFORMED: Colonoscopy to the cecum with snare polypectomy. ESTIMATED BLOOD LOSS: COMPLICATIONS: ANESTHESIA: Monitored anesthesia care. ASSISTANTS: SPECIMENS: DESCRIPTION OF PROCEDURE: History and physical performed. The risks and benefits of the procedure were explained to the patient. Informed consent was obtained. The patient was placed in the left lateral decubitus position. A digital rectal exam was performed and was found to be normal. The Olympus pediatric video colonoscope was introduced into the rectum and advanced to the cecum. The cecum was identified by transillumination, palpation, and identification of ileocecal valve. Examination was performed and the scope was removed. He tolerated the procedure well and was returned to recovery room in stable condition. FINDINGS: The terminal ileum was not examined. Abdominal wall pressure was used to assist in advancement of the scope due to looping in the sigmoid. This made the procedure extended and difficult. Two polyps were identified in the right colon and removed with a cold snare. They were recovered via suction. A 3rd polyp in the rectum was also removed with a cold snare and recovered via suction. All polyps measured less than 10 mm. There was some liquid stool in the descending and proximal sigmoid colon, which limited the sensitivity examination for detection of small polyps. This did coat the mucosa and was washed and suctioned as best as possible. Retroflexed examination showed some small internal hemorrhoids. IMPRESSION: Colon polyps. RECOMMENDATION: Follow up the biopsy results. MD GREGOR Veliz/ESPERANZAL / [id number]
== END 2025-09-05 16:18 | disposition home or self-care (01) ==
PROVIDERS: PCP Nurse Practitioner Family; Visit Provider Internal Medicine Gastroenterology
PROC: 0DJD8ZZ Inspection of Lower Intestinal Tract, Via Natural or Artificial Opening Endoscopic (ICD-10-PCS; CPT 45378; principal; 2025-09-05 14:40)
DX: Z12.11 Encounter for screening for malignant neoplasm of colon (principal); Z86.0101 Personal history of adenomatous and serrated colon polyps; D12.2 Benign neoplasm of ascending colon; K62.1 Rectal polyp; K64.8 Other hemorrhoids; I10 Essential (primary) hypertension; E11.9 Type 2 diabetes mellitus without complications; D68.51 Activated protein C resistance; Z86.718 Personal history of other venous thrombosis and embolism; Z79.01 Long term (current) use of anticoagulants; Z79.899 Other long term (current) drug therapy; Z98.890 Other specified postprocedural states
CPT/HCPCS: 45385; 82947; 88305; 94640; J2003; J2704; J3010